=== PATIENT | female | born 1950 | race Caucasian/White ===

== ENCOUNTER 2018-05-05 08:42 | Outpatient (CLI) | payer OTHER, SELFPAY ==
[2018-05-05 10:10] LABS: ALT 45 U/L (12-78); AST 25 U/L (15-37); Albumin 4.1 g/dL (3.4-5.0); Alkaline Phosphatase 67 U/L (46-116); Anion Gap 8.7 mmol/L (3-11); BUN 16 mg/dL (7-18); Bilirubin, Total 0.5 mg/dL (0.2-1.0); CO2 31.3 mmol/L (21.0-32.0); CREATININE 0.77 mg/dL (0.55-1.02); Calcium 9.6 mg/dL (8.5-10.1); Chloride 102 mmol/L (98-107); Cholesterol 174 mg/dL (50-200); Glucose 93 mg/dL (70-100); HDL Cholesterol 59 mg/dL (40-60); LDL CHOLESTEROL 99 mg/dL (<100); Potassium 3.9 mmol/L (3.5-5.1); Sodium 142 mmol/L (136-145); Total Protein 7.4 g/dL (6.4-8.2); Triglyceride 63 mg/dL (30-150)
[2018-05-08 08:15] LABS: Vitamin D 25 Total 37.8 ng/ml (30-100)
== END 2018-05-05 09:02 ==
PROVIDERS: PCP Family Medicine; Visit Provider Family Medicine
DX: Z00.00 Encounter for general adult medical examination without abnormal findings (principal); I10 Essential (primary) hypertension; E55.9 Vitamin D deficiency, unspecified
CPT/HCPCS: 36415; 80053; 80061; 82306; 83721

== ENCOUNTER 2018-05-11 00:38 | Outpatient (CLI) | payer OTHER, SELFPAY ==
--- NOTE | 2018-05-11 08:24 | DI.MAMMO_ITS ---
SYMPTOM/DIAGNOSIS: SCREENING, Z12.31 MAMMOGRAMS: Mammograms were interpreted according to the usual protocol including computer analysis with CAD system, tomosynthesis and C view imaging. The breasts are heterogeneously dense. No dominant mass or clumped microcalcification is identified in either breast. The current examination is compared with the previous examinations including 04/2017 and there has been no gross interval change in appearance in comparison with the previous studies. CONCLUSION: No specific evidence of malignancy at this time. Routine screening examinations are suggested at yearly intervals in this age group according to the ACS/ACR guidelines. Category 1. Breast density, category C. MQSA ASSESSMENT OF FINDINGS: Negative. Category 1. Patient will receive a letter notifying them of these results. Bi-RADS category C. The breasts are heterogeneously dense, which may obscure small masses.
== END 2018-05-11 00:58 ==
PROVIDERS: PCP Family Medicine; Visit Provider Family Medicine
DX: Z12.31 Encounter for screening mammogram for malignant neoplasm of breast (principal)
CPT/HCPCS: 77063; 77067

== ENCOUNTER 2018-10-31 13:56 | Outpatient (REF) | payer OTHER, SELFPAY ==
[2018-11-02 13:38] LABS: Chlamydia Result Negative; GC Result Negative; Specimen Description VAGINAL
== END 2018-10-31 14:16 ==
LOC: LBN 13:56
PROVIDERS: PCP Family Medicine; Visit Provider Family Medicine
DX: N76.0 Acute vaginitis (principal); Z11.3 Encounter for screening for infections with a predominantly sexual mode of transmission
CPT/HCPCS: 87491; 87591; 87480; 87510; 87660

== ENCOUNTER 2018-11-08 10:15 | Outpatient (CLI) | payer OTHER, SELFPAY ==
[2018-11-09 10:00] LABS: Hepatitis C Ab w Rflx HCV PCR Negative (NEGAT)
[2018-11-09 10:51] LABS: HIV-1/2 Ag & Ab Screen Negative (NEGAT)
[2018-11-09 11:00] LABS: Syphilis Serology (RPR) Negative (Negative)
[2018-11-10 11:09] LABS: HSV Type 1 Ab, IgG Positive; HSV Type 2 Ab, IgG Negative
== END 2018-11-08 10:35 ==
PROVIDERS: PCP Family Medicine; Visit Provider Family Medicine
DX: Z11.3 Encounter for screening for infections with a predominantly sexual mode of transmission (principal); Z11.59 Encounter for screening for other viral diseases; Z11.4 Encounter for screening for human immunodeficiency virus [HIV]
CPT/HCPCS: 36415; 86803; 87389; 87529; 86592; 86695; 86696

== ENCOUNTER 2019-06-07 01:00 | Outpatient (CLI) | payer OTHER, SELFPAY ==
--- NOTE | 2019-06-07 12:30 | DI.MAMMO_ITS ---
EXAM: MAMMO SCREENING CLINICAL HISTORY: screening, Z12.39 TECHNIQUE: Mammograms were interpreted according to the usual protocol including computer analysis w ith CAD system, tomosynthesis and C-view imaging. COMPARISON: 2009 through 2018 FINDINGS: The breasts are composed of heterogeneously dense fibroglandular densities, Breast Density category C . No suspicious masses or suspicious microcalcifications are seen. No skin thickening or abnormal axillary lymph nodes are seen. There has been no significant change from prior exams. IMPRESSION: BI-RADS Category 1: Negative mammogram. Yearly screening mammography is recommended. Breast density category C, heterogeneously dense tissue which decreases the sensitivity of the mammog alexia. The mammogram demonstrates the patient's breast tissue is dense. Dense breast tissue is very common a nd is not abnormal but dense breast tissue can make it harder to find cancer on a mammogram. Also, de nse breast tissue may increase breast cancer risk. This information about the result of the mammogram report was provided to the patient to raise their awareness. Use this report when you speak with the patient about their risks for breast cancer, which includes their family history. At that time, you may recommend additional screening tests (Ultrasound or MRI) as they might be useful based on their r isk. A negative radiographic report should not delay biopsy if a dominant or clinically suspicious mass is present. Up to ten percent of cancers are not identified on mammography. A negative report may reinforce clinical impression. Adenosis and dense breasts may obscure an underlying neoplasm. False positive reports average 6 to 10%.
== END 2019-06-07 01:20 ==
PROVIDERS: PCP Family Medicine; Visit Provider Family Medicine
DX: Z12.31 Encounter for screening mammogram for malignant neoplasm of breast (principal)
CPT/HCPCS: 77063; 77067

== ENCOUNTER 2019-07-05 09:35 | Outpatient (CLI) | payer OTHER, SELFPAY ==
--- NOTE | 2019-07-05 09:00 | DI.US_ITS ---
EXAM: US BREAST RT COMPLETE CLINICAL HISTORY: right breast changes/ nl mammo, breast skin changes, R23.4, changes skin TECHNIQUE: Ultrasound right breast performed using standard protocol. COMPARISON: Prior mammograms available for comparison. The most recent mammogram is dated 06/07/2019 . FINDINGS: No solid or cystic masses, hypoechoic foci, areas of abnormal shadowing, or areas of skin thickening. IMPRESSION: No sonographically suspicious finding is seen in the right breast. DATA REPOSITORY:
== END 2019-07-05 09:55 ==
PROVIDERS: PCP Family Medicine; Visit Provider Family Medicine
DX: N64.59 Other signs and symptoms in breast (principal); R23.4 Changes in skin texture
CPT/HCPCS: 76642

== ENCOUNTER 2020-01-18 02:23 | Outpatient (CLI) | payer OTHER, MEDICARE, SELFPAY ==
[2020-01-18 09:42] LABS: HCT 41.4 % (36.0-46.0); HGB 13.9 g/dL (11.2-15.7); MCH 31.4 pg (27.0-33.0); MCHC 33.6 % (32.0-36.0); MCV 93.7 fL (80-95); MPV 10.2 fL (8.0-11.0); Platelet Count 248 10^3/uL (130-400); RBC 4.42 10^6/uL (3.93-5.22); RDW 12.5 % (11.7-14.6); RDW-SD 43.6 fL; WBC 4.68 10^3/uL (4.4-10.8)
[2020-01-18 10:25] LABS: ALT 70 U/L (14-59); AST 37 U/L (15-37); Albumin 3.9 g/dL (3.4-5.0); Alkaline Phosphatase 71 U/L (46-116); Anion Gap 4.7 mmol/L (3-11); BUN 11 mg/dL (7-18); Bilirubin, Total 0.4 mg/dL (0.2-1.0); C-Reactive Protein 0.67 mg/dL (0.0-0.3); CO2 29.3 mmol/L (21.0-32.0); CREATININE 0.73 mg/dL (0.55-1.02); Calcium 8.8 mg/dL (8.5-10.1); Chloride 106 mmol/L (98-107); Glucose 93 mg/dL (74-106); Potassium 3.8 mmol/L (3.5-5.1); Sodium 140 mmol/L (136-145); Total Protein 6.7 g/dL (6.4-8.2)
[2020-01-18 10:48] LABS: ESR 14 mm/hr (0-30)
[2020-01-18 20:45] LABS: Rheumatoid Factor <8.6 IU/mL (<12.0)
[2020-01-21 05:09] LABS: Vitamin D 25 Total 25.8 ng/ml (30-100)
[2020-01-21 09:14] LABS: HBs Antibody, Quant 128.1 mIU/mL (See Note); Hepatitis B Surface Ab Positive (See Note)
[2020-01-21 09:45] LABS: Cyclic Citrullinated Peptide <2.5 U/mL (<5.0)
[2020-01-21 10:09] LABS: Measles IgG Antibody Positive (See Note); Mumps Antibody IgG Positive (See Note); Rubella IgG Ab (UVM) Positive (See Note); Varicella IgG Antibody Positive (See Note)
[2020-01-21 12:16] LABS: HLA-B27 Result Negative
[2020-01-21 14:05] LABS: ANA Interpretation Negative (Negative)
[2020-02-07 09:43] LABS: TB Interpretation Negative (Negative)
== END 2020-01-18 02:43 ==
PROVIDERS: Nurse Practitioner Family; PCP Family Medicine; Visit Provider Family Medicine
DX: M54.2 Cervicalgia (principal); M79.641 Pain in right hand; M25.531 Pain in right wrist; M25.562 Pain in left knee; Z11.59 Encounter for screening for other viral diseases; Z01.84 Encounter for antibody response examination
CPT/HCPCS: 36415; 80053; 82306; 85027; 85652; 86200; 86706; 86787; 86812; 86038; 86140; 86431; 86480; 86735; 86762; 86765

== ENCOUNTER 2020-01-18 03:31 | Outpatient (CLI) | payer OTHER, MEDICARE, SELFPAY ==
--- NOTE | 2020-01-18 07:45 | DI.RAD_ITS ---
EXAM: XR HAND RT COMPLETE CLINICAL HISTORY: wrist and hand pain,m25.50,m25.539,arthralgia,m79.643 TECHNIQUE: 2D digital imaging was performed. COMPARISON: No exams were available for comparison FINDINGS: Bones are normally mineralized. There is mild spurring at the interphalangeal joint of the thumb. N o bony erosions are seen. There are mild degenerative changes at the 1st carpal metacarpal joint. IMPRESSION: Mild degenerative changes..
--- NOTE | 2020-01-18 07:45 | DI.RAD_ITS ---
EXAM: XR KNEE LT 3V AP,LAT,FLOYD CLINICAL HISTORY: left knee pain,m25.569. TECHNIQUE: 2D digital imaging was performed. COMPARISON: CR LEFT KNEE 4+ VIEWS from 11/12/2014 FINDINGS: BONES: No acute fracture is present. No bony destructive lesion is seen. JOINTS: There is moderate narrowing of the medial femoral tibial joint. There is mild spurring at th e medial femoral condyle and medial tibial plateau. There is minimal spurring at the patellofemoral joint. No joint effusion is seen. SOFT TISSUE: Normal. 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 Findings have progressed when comp ared with 2015. DATA REPOSITORY: RADIATION DOSE DELIVERED:
--- NOTE | 2020-01-18 07:45 | DI.RAD_ITS ---
EXAM: XR WRIST RT COMPLETE CLINICAL HISTORY: wrist and hand pain,arthralgia,m25.50,m25.539,m79.643. TECHNIQUE: 2D digital imaging was performed. COMPARISON: No exams were available for comparison FINDINGS: BONES: No acute fracture is present. No bony destructive lesion is seen. A cyst is noted in the navic ular. There are tiny cysts at the ulnar styloid. There is mild spurring at the distal radius. Ther e are mild degenerative changes of the 1st carpal metacarpal joint. The bones are normally mineraliz ed. JOINTS: The carpal bones are normally aligned. SOFT TISSUE: Normal. IMPRESSION: Mild degenerative changes, greatest at the 1st carpal metacarpal joint. DATA REPOSITORY: RADIATION DOSE DELIVERED:
== END 2020-01-18 03:51 ==
PROVIDERS: PCP Family Medicine; Visit Provider Family Medicine
DX: M18.11 Unilateral primary osteoarthritis of first carpometacarpal joint, right hand (principal); M77.8 Other enthesopathies, not elsewhere classified; M85.631 Other cyst of bone, right forearm; M17.12 Unilateral primary osteoarthritis, left knee
CPT/HCPCS: 73562; 73110; 73130

== ENCOUNTER 2020-03-14 02:34 | Outpatient (CLI) | payer OTHER, SELFPAY ==
[2020-03-14 16:32] LABS: ALT 60 U/L (14-59); AST 23 U/L (15-37); Albumin 4.1 g/dL (3.4-5.0); Alkaline Phosphatase 88 U/L (46-116); Anion Gap 7.9 mmol/L (3-11); BUN 19 mg/dL (7-18); Bilirubin, Total 0.3 mg/dL (0.2-1.0); CO2 28.1 mmol/L (21.0-32.0); CREATININE 0.83 mg/dL (0.55-1.02); Calcium 9.4 mg/dL (8.5-10.1); Chloride 103 mmol/L (98-107); Glucose 108 mg/dL (74-106); Potassium 3.8 mmol/L (3.5-5.1); Sodium 139 mmol/L (136-145); Total Protein 7.1 g/dL (6.4-8.2)
[2020-03-17 10:28] LABS: HBs Antibody, Quant 128.6 mIU/mL (See Note); Hepatitis B Surface Ab Positive (See Note)
[2020-03-17 11:09] LABS: Measles IgG Antibody Positive (See Note); Varicella IgG Antibody Positive (See Note)
[2020-03-17 11:11] LABS: Mumps Antibody IgG Positive (See Note); Rubella IgG Ab (UVM) Positive (See Note)
[2020-03-19 14:31] LABS: TB Interpretation Negative (Negative); TB1 Ag minus Nil 0.01 IU/ml; TB2 Ag minus Nil 0.01 IU/mL
== END 2020-03-14 02:54 ==
PROVIDERS: Nurse Practitioner Family; PCP Family Medicine; Visit Provider Family Medicine
DX: R79.89 Other specified abnormal findings of blood chemistry (principal); Z02.1 Encounter for pre-employment examination; Z11.59 Encounter for screening for other viral diseases
CPT/HCPCS: 36415; 80053; 86706; 86787; 86480; 86735; 86762; 86765

== ENCOUNTER 2020-09-03 02:48 | Outpatient (CLI) | payer MEDICARE, SELFPAY ==
[2020-09-03 12:37] LABS: ALT 59 U/L (14-59); AST 29 U/L (15-37); Alkaline Phosphatase 72 U/L (46-116); Anion Gap 7.4 mmol/L (3-11); BUN 16 mg/dL (7-18); Bilirubin, Total 0.4 mg/dL (0.2-1.0); CO2 30.6 mmol/L (21.0-32.0); CREATININE 0.8 mg/dL (0.55-1.02); Calcium 9.4 mg/dL (8.5-10.1); Chloride 105 mmol/L (98-107); Glucose 114 mg/dL (74-106); Sodium 143 mmol/L (136-145); Total Protein 6.8 g/dL (6.4-8.2)
[2020-09-04 05:16] LABS: Vitamin D 25 Total 68.8 ng/mL (30-100)
== END 2020-09-03 02:49 | disposition home or self-care (01) ==
LOC: LBO 02:48
PROVIDERS: PCP Family Medicine; Visit Provider Family Medicine
DX: R79.89 Other specified abnormal findings of blood chemistry (principal); E55.9 Vitamin D deficiency, unspecified
CPT/HCPCS: 36415; 80053; 82306

== ENCOUNTER 2020-09-22 02:02 | Outpatient (CLI) | payer MEDICARE, SELFPAY ==
--- NOTE | 2020-09-22 12:50 | DI.MAMMO_ITS ---
Exam(s) MAMMO SCREENING EXAM: MAMMO SCREENING CLINICAL HISTORY: screening Z12.39. TECHNIQUE: Bilateral full field digital CC and MLO mammographic images were obtained with 3D tomosyn thesis and utilizing computer aided detection (CAD). COMPARISON: Prior mammograms dating back to 2010, the most recent being May 2019. FINDINGS: There are no new significant radiograph findings in left breast. In the lateral aspect of the right breast on 3D MLO imaging there is a new small noncalcified nodule measuring 5 x 3 millimeters, this located approximately 6.5 cm in from the nipple. There are no malignant-appearing microcalcification groups in this region or elsewhere in either moni st. There is no significant architectural distortion nor skin thickening-retraction. IMPRESSION: No radiographic evidence of malignancy in left breast. 5.3 millimeter noncalcified right breast nodule. Spot compression view and ultrasound recommended. BI-RADS Category 0 - Assessment Incomplete: Need additional imaging evaluation Breast Density - Category C - Heterogeneously dense Breast density Category C or D implies that the patient has dense breast tissue. Dense breast tissue can make it harder to find cancer on a mammogram. Dense breast tissue is also associated with an incr eased risk of breast cancer. This information about the result of the mammogram report was provided to the patient to raise their awareness. Use this report when you speak with the patient about their risks for breast cancer, which includes their family history. At that time, you may recommend additional screening tests (Ultrasoun d or MRI) as these tests may add significant information. A negative radiographic report should not delay biopsy if a dominant or clinically suspicious mass is present. Up to ten percent of cancers are not identified on mammography. A negative report may reinforce clinical impression. Adenosis and dense breasts may obscure an underlying neoplasm. False positive reports average 6 to 10%. Patient will receive a letter notifying them of these results.
== END 2020-09-22 02:22 ==
PROVIDERS: PCP Family Medicine; Visit Provider Family Medicine
DX: Z12.31 Encounter for screening mammogram for malignant neoplasm of breast (principal); N63.10 Unspecified lump in the right breast, unspecified quadrant
CPT/HCPCS: 77063; 77067

== ENCOUNTER → 2020-10-03 03:04 | Outpatient (CLI) | payer MEDICARE, SELFPAY ==
--- NOTE | 2020-10-03 | DI.US_ITS ---
Exam(s) US BREAST RT LIMITED EXAM: US BREAST RT LIMITED a CLINICAL HISTORY: F/U MAMMO, NEW RT BREAST NODULE TECHNIQUE: Ultrasound right breast performed using standard protocol and call back views. Please see report of call back additional views of same date. FINDINGS: No solid or cystic masses, hypoechoic foci, areas of abnormal shadowing, or areas of skin thickening. IMPRESSION: No sonographically suspicious finding. DATA REPOSITORY:
--- NOTE | 2020-10-03 13:33 | DI.MAMMO_ITS ---
Exam(s) MG MAMMO SCREEN CALL BACK UNI EXAM: MG MAMMO SCREEN CALL BACK UNI MG MAMMO SCREEN CALL BACK UNI 8 CLINICAL HISTORY: F/U MAMMO,NEW RT BREAST NODULE TECHNIQUE: Spot compression views and tomographic imaging were performed. and right breast ultrasound. COMPARISON: 22 September 2020 mammogram and bowel as exams back to 2010 FINDINGS: Spot compression right MLO view with tomography:No suspicious masses or suspicious microcalcification s are seen. No persistent abnormality is seen on the additional views performed. The findings are consistent wit h overlying fibroglandular tissue. Dense tissue is again noted in the upper outer quadrant of the ri ght breast, unchanged. There has been no significant change from prior exams. Right breast ultrasound: No cyst or mass is identified. IMPRESSION: BI-RADS Category 1, Negative Yearly screening mammography is recommended. Breast Density - Category C - Heterogeneously dense.
== END ==
PROVIDERS: PCP Family Medicine; Visit Provider Family Medicine
DX: Z12.31 Encounter for screening mammogram for malignant neoplasm of breast (principal); R92.8 Other abnormal and inconclusive findings on diagnostic imaging of breast; N63.10 Unspecified lump in the right breast, unspecified quadrant
CPT/HCPCS: 76642; 77063; 77067

== ENCOUNTER → 2021-02-13 09:49 | Outpatient (BNVA) | payer MEDICARE, SELFPAY | PROVIDERS: PCP Family Medicine; Referring Provider Family Medicine; Visit Provider Physical Therapy Assistant | DX: Z12.11 Encounter for screening for malignant neoplasm of colon (principal); I10 Essential (primary) hypertension ==

== ENCOUNTER 2021-03-04 01:57 | Outpatient (CLI) | payer MEDICARE, SELFPAY ==
[2021-03-04 11:41] LABS: Source Nasal/Nares
[2021-03-04 13:50] LABS: COVID-19 PCR Negative (Negative)
== END 2021-03-04 01:58 | disposition home or self-care (01) ==
LOC: LBO 01:57
PROVIDERS: Surgery; PCP Family Medicine; Visit Provider Surgery
DX: Z20.822 Contact with and (suspected) exposure to COVID-19 (principal)
CPT/HCPCS: 87635

== ENCOUNTER 2021-03-06 08:00 | Day surgery (SDC) | payer MEDICARE, SELFPAY ==
--- NOTE | 2021-03-05 21:18 | W.COLOREPORT ---
Colonoscopy Report Date of procedure: 03/06/21 Pre-op diagnosis general: CRC screen Post-op diagnosis procedure note: other (Erythema from 60 to 70 cm of undetermined significance. Biopsies pending.) Surgeon: Safia Sumner Anesthesia Type: General:No Airway Estimated blood loss (mL): 1 Pathology: other Complications: None Disposition: same day Prep: Miralax/Dulcolax Retraction Time: 8 Procedure Description: After informed consent was obtained the patient was taken to the procedure room and placed in a left decubitous position. Monitors were applied and a time out was done. The patients name, date of , procedure, allergies to medications and metal in their body was reviewed. The patient was then sedated. Once sedated and comfortable a rectal exam was done. External exam was normal. Internal exam revealed a normal sphincter tone and no palpable masses. The scope was then introduced and retrofelexed. no internal hemorrhoids were identified. The scope was then advanced to the cecum w/out difficulty. The TI and appendiceal orifice were identified. The prep was good. The scope was then slowly retracted over 8 minutes back into the rectum. There are no polyps, diverticula, or AVMs noted. From 60 to 70 cm on the antimesenteric, wall she has an area of patchy, mild erythema of undetermined significance. Biopsy was taken. The scope was removed and the patient was woken up and taken back to Same day surgery in stable condition. The patient tolerated the procedure well and there were no immediate complications. Follow up: The patient should follow up in 10 years- path pd, unless they develop changes in bowel habits or other new gastrointestinal complaints.
--- NOTE | 2021-03-05 21:19 | PDOC.DSDIS_ITS ---
Discharge Plan Disposition Patient Disposition: HOME Condition: Good Discharge Details Reason For Visit: colon scope Attending Provider: Safia Sumner Primary Care Provider: Maki Dowd Home Meds and New Rx's Prescriptions: Continued cyclobenzaprine 10 mg tablet 10 mg PO BID PRN (Reason: muscle spasm) Qty: 30 RF: 1 estradiol [Vagifem] 10 mcg tablet 10 mcg VG twice weekly Qty: 24 RF: 12 estradiol [Estrace] 0.01 % (0.1 mg/gram) cream 2 g VG DAILY Qty: 42.5 RF: 2 hydrochlorothiazide 25 mg tablet 25 mg PO DAILY Qty: 90 RF: 4 prochlorperazine maleate 10 mg tablet 10 mg PO Q8H PRN Qty: 90 RF: 0 rizatriptan [Maxalt] 10 mg tablet 10 mg PO Q2H PRN (Reason: migraine headache) Qty: 7 RF: 3 sulfamethoxazole-trimethoprim 800-160 mg tablet 1 tab PO as directed Qty: 60 RF: 0 multivitamin [Daily Multi-Vitamin] Tablet 1 tab PO DAILY RF: 0 omeprazole 20 mg capsule,delayed release(DR/EC) 20 mg PO DAILY Qty: 60 RF: 0 fluconazole 150 mg tablet 150 mg PO Q3D Qty: 2 RF: 0 quetiapine 100 mg tablet 100 mg PO DAILY Qty: 90 RF: 12 celecoxib 200 mg capsule 200 mg PO DAILY Qty: 30 RF: 3 zolpidem 10 mg tablet 10 mg PO QHS PRN (Reason: insomnia) Qty: 30 RF: 0 ergocalciferol (vitamin D2) 1,250 mcg (50,000 unit) capsule 50,000 unit PO QWEEK Qty: 13 RF: 4 lorazepam [Ativan] 1 mg tablet 1 mg PO BID PRN (Reason: anxiety) Qty: 60 RF: 0 Discontinued polyethylene glycol 3350 17 gram/dose powder 238 g PO ONCE Qty: 238 RF: 0 bisacodyl [Dulcolax (bisacodyl)] 5 mg tablet,delayed release (DR/EC) 5 mg PO ONCE Qty: 4 RF: 0 Discharge Instructions Additional Instructions: DSU Colonoscopy Post- Op Instructions Instructions for Everyone who is given Anesthesia: For your safety, please do the following for the next twenty-four (24) hours: *Do Not operate a motor vehicle (car, truck, motorcycle, etc.) *Do Not drink alcoholic beverages or use any recreational drugs for the first 24 hours or while taking pain medications. The medications in your body may have a reaction that can be dangerous. *Do Not make any important decisions or sign any important papers. Findings: mild irritation from 60-70cm of unknown clinical significance. bx taken Otherwise the colon is completely normal -If you are still having constipation on a regular basis, I recommend you take a fiber product daily such as Metamucil. Follow up: My office will send a letter in 2 to 3 weeks time with the biopsy result. Most likely is just some irritation from the prep. Plan on repeating colonoscopy in 10 years time 1. No lifting over 20 pounds or strenuous activity for the first 24 hours after your procedure. After 24 hours there are no restrictions on your activity but you may feel fatigued for a few days. 2. After you arrive home you may have a light meal and return to your normal diet as you can tolerate it without feeling sick to your stomach. 3. You may have a bloated, gaseous feeling in your belly (abdomen) after a colonoscopy. Passing gas and belching will help. Walking or lying down on your left side with your knees flexed may relieve the discomfort. Call the office at [phone] (Office) or [phone] (Hospital) right away if you notice any of the following: a.Vomiting of blood or ?coffee ground stools?. b.Rectal bleeding 1Tbsp, blood clots or continuous bleeding. c.Severe belly (abdominal) pain. d.A hard distended belly (abdomen) and an inability to pass gas. 4. Please don?t expect to have a normal BM (bowel movement) for 2-3 days after your procedure. 5. If there are questions regarding the findings of your procedure, please contact your doctor 6. If you are unable to contact your doctor with a problem, contact the hospital at [phone]. 7. Continue all your regular medications unless directed otherwise. I understand the above instructions and have no questions. Signature of Patient or Adult Escort Name of Responsible Adult Escort Signature of Nurse Date/Time Activity:: see above Diet:: see above Discharge Orders Discharge Orders: Discharge Order (Routine); Ordered 03/05/21 Ordered By: Safia Sumner DS: Diagnosis Discharge Diagnosis (1) Colon abnormality: Status: Acute
[2021-03-06 08:18] VITALS: BP 133/103; PULSE 93; RESP 16; TEMP 36.6; O2SAT 97
--- NOTE | 2021-03-06 08:33 | ANES.PREOP_ITS ---
General Info Date of Service Date Performed: 03/06/21 Height: 5 ft 7 in Weight: 94.585 kg Body Mass Index (BMI): 32.6 Surgical Procedure: Operation Date: 03/06/21 09:05 Proposed Procedures Side Surgeon fanny Sumner, DO Meds Allergies and Home Medications Allergies Allergy/AdvReac Type Severity Reaction Status Date / Time nut - unspecified Allergy Severe Tremors Verified 03/04/21 14:50 Penicillins Allergy Intermediate Skin Rash Verified 03/04/21 14:50 wheat Allergy Rash Verified 03/04/21 14:50 topiramate AdvReac Severe CONTRAINDIC Verified 03/04/21 14:50 ATED tramadol AdvReac Intermediate Headache Verified 03/04/21 14:50 codeine AdvReac Mild Headache Verified 03/04/21 14:50 meperidine HCl [From Demerol] AdvReac Mild Headache Verified 03/04/21 14:50 metoclopramide HCl AdvReac Mild Contraindic Verified 03/04/21 14:50 [From Reglan] ated Home Medication Medication Instructions Recorded cyclobenzaprine 10 mg tablet 10 mg PO BID PRN #30 tab-cap 03/18/20 estradiol 2 g VG DAILY #42.5 g 03/18/20 estradiol 10 mcg vaginal tablet 10 mcg VG twice weekly #24 tab-cap 03/18/20 hydrochlorothiazide 25 mg tablet 25 mg PO DAILY #90 tab-cap 03/18/20 prochlorperazine maleate 10 mg 10 mg PO Q8H PRN #90 tab 03/18/20 tablet rizatriptan 10 mg tablet 10 mg PO Q2H PRN #7 tab 03/18/20 sulfamethoxazole 800 1 tab PO as directed #60 tab-cap 03/18/20 mg-trimethoprim 160 mg tablet fluconazole 150 mg tablet 150 mg PO Q3D #2 tab 08/15/20 quetiapine 100 mg tablet 100 mg PO DAILY #90 tab 09/25/20 celecoxib 200 mg capsule 200 mg PO DAILY #30 cap 11/24/20 zolpidem 10 mg tablet 10 mg PO QHS PRN #30 tab 12/09/20 ergocalciferol (vitamin D2) 1,250 50,000 unit PO QWEEK #13 cap 01/16/21 mcg (50,000 unit) capsule lorazepam 1 mg tablet 1 mg PO BID PRN #60 tab 01/21/21 multivitamin 1 tab PO DAILY 02/13/21 omeprazole 20 mg capsule,delayed 20 mg PO DAILY #60 cap 02/16/21 release Current Visit Medications: Current Medications Generic Name Dose Route Start Last Admin Trade Name Gary PRN Reason Stop Dose Admin Hyoscyamine Sulfate 0.125 mg 03/05/21 21:15 Hyoscyamine 0.125 Mg Sl/Oral/Chew SL DIRECTED PRN Ringer's Solution 1,000 mls @ 80 mls/hr 03/06/21 06:00 IV 04/04/21 23:59 INFUSION [facility] IV Miscellaneous Supplies 1 each 03/06/21 06:00 Iv Access IV 04/04/21 23:59 DIRECTED [facility] Ondansetron HCl 4 mg 03/05/21 21:15 Ondansetron 4 Mg/2 Ml Vial IVP Q4H PRN PRN Nausea / Vomiting Sodium Chloride 0 ml 03/06/21 06:00 Normal Saline Flush 10 Ml Syr IV 04/04/21 23:59 PRN PRN Sodium Chloride 0 ml 03/06/21 06:00 Normal Saline 10 Ml Vial IJ 04/04/21 23:59 DIRECTED PRN Sterile Water 0 ml 03/06/21 06:00 Water,Injection,Sterile 10 Ml Vial IJ 04/04/21 23:59 DIRECTED PRN PFSH Active Problems Active Problems: Problem Status Onset Code Vitamin D deficiency E55.9 Urethritis 07/29/14 N34.2 TMJ (temporomandibular joint disorder) 07/29/16 M26.609 Sacroiliac dysfunction 12/04/15 M53.3 Primary fibromyalgia syndrome 04/04/12 M79.7 Migraine without aura 07/31/14 G43.009 Lichen sclerosus et atrophicus 04/05/11 L90.0 Insomnia 11/11/14 G47.00 Hemorrhoids K64.9 Essential hypertension 12/26/12 I10 Dysphagia R13.10 Degeneration of cervical intervertebral disc 06/20/07 M50.30 Constant vertigo 09/14/12 R42 Bone spur M77.9 Asthma J45.909 Anxiety 02/04/14 F41.9 Annual physical exam 03/31/15 Z00.00 Abnormal auditory perception 12/05/14 H93.299 SCC (squamous cell carcinoma) Herpes simplex antibody positive R89.4 Cervical pain (neck) M54.2 Arthralgia M25.50 Elevated LFTs R79.89 Primary osteoarthritis of left knee M17.12 Tendonitis of wrist, right M77.8 Colon cancer screening Z12.11 Medical History Medical History Acute gastritis (11/28/08) Acute meniscal tear, medial (09/01/12) 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 states arthroscopy not arthroplasty LEFT; WITH PARTIAL MEDIAL MENISCECTOMY Bladder Surgery (~05/2009) SLING CYSTECTOMY RIGHT HAND/CHEEK EGD - MAC Hemorrhoidectomy (~09/2010) History of bladder repair surgery History of esophagogastroduodenoscopy KNEE REPAIR right knee bone spur POLYPECTOMY Status post appendectomy Status post hemorrhoidectomy Status post knee surgery Status post vaginal hysterectomy UTERINE BX (09/01/07) Proliferative endometrium Vaginal hysterectomy (~05/2009) [facility] – [place] Tobacco Smoking/Tobacco Use Status: Never Passive smoking exposure: Yes Alcohol Alcohol Intake: never Substance Use Substance use: Never Substance use type: does not use Vital Signs and Lab Results Vital Signs Most Recent Vital Signs in EMR: Most Recent Vital Signs Temp Pulse Resp BP Pulse Ox 36.6 C 93 H 16 133/103 H 97 03/06/21 08:18 03/06/21 08:18 03/06/21 08:18 03/06/21 08:18 03/06/21 08:18 Lab Results Blood Type / Crossmatch: No Data to Display Complete Blood Count: No Data to Display Complete Metabolic Panel: No Data to Display Liver Function Panel: No Data to Display Coagulation Panel: No Data to Display Cardiac Panel: No Data to Display Arterial Blood Gas: No Data to Display Venous Blood Gas: No Data to Display Pancreas Panel: No Data to Display Thyroid Panel: No Data to Display Infectious Disease: Coronavirus (COVID-19)(PCR) Negative (Negative) 03/04/21 09:07 03/04/21 Coronavirus 2019 Source Nasal/Nares 03/04/21 09:07 03/04/21 Blood Cultures: No Data to Display Toxicology Panel: No Data to Display Anesthesia Assessment and Plan Anesthesia History Personal History: No History of Anesthesia Complications Family History: No Family History of Anesthesia Complications Exercise Tolerance Exercise Tolerance: Metabolic Equivalents>4 Cardiac & Pulmonary Exam Cardiac Exam: Normal S1/S2 Heart Sounds Pulmonary Exam: Clear Bilateral Breath Sounds Implantable Cardiac Device Does patient have a Pacemaker or an ICD?: No Airway Exam Known Difficult Airway: No Mallampati Class: 3 Mouth Opening: Narrow (< 3cm) Thyromental Distance: Greater than 3 cm Neck Range of Motion: Full ROM Neck Circumference: Thick Teeth Condition: Normal Dentition ASA Classification ASA Score: ASA 2 Emergency Case?: No NPO Status NPO Status: NPO Clears >2 hours, Solids >8 hours Anesthesia Plan Resuscitation Status: Full Code Anesthesia Technique: General Anesthesia Airway Planned: Natural Airway Monitors Used: Standard Monitors Preoperative Comments:: 70 yo female for screening colo. Sig PMHx: TMJ, HTN (HCTZ), dysphagia, c spine radiculopathy, asthma, anxiety (loraz), GERD (omep) never smoker/EtOH.
[2021-03-06] MEDS: Lactated Ringers 1,000 ML 80 ML IV (08:53)
[2021-03-06 08:54] VITALS: BMI 32.6
--- NOTE | 2021-03-06 09:15 | BOWEL_PTH ---
PATIENT: Paulette Ho LOC: [facility] U#:[id number] AGE/SX: 70/F ROOM: RE03/06/[address]: Safia Sumner : 1950 BED: DIS: 03/06/2021 SPEC #: [id number] RECD: 03/06/21 12:46 STATUS: MELINDA REEva #: [id number] NEGRITA: 03/06/21 09:[address]: Safai Sumner DEPT: Surgical Specimen RECD BY: Cristel Cordero ENTERED: 03/06/21 12:47 SP TYPE: Bowel OTHR DR: Maki Dowd MD, DC Tissues: 1 - BIOPSY BOWEL Procedures: GROSS AND MICRO LEVEL 4 Comments: [id number]
[2021-03-06 09:39] VITALS: BP 124/89; PULSE 86; RESP 16; TEMP 36.1; O2SAT 96
[2021-03-06 10:09] VITALS: BP 135/82; PULSE 67; RESP 16; TEMP 36.1; O2SAT 95
--- NOTE | 2021-03-06 11:57 | W.ANESPOSTOP ---
Postoperative Evaluation Date, Time and Location Date Performed: 03/06/21 Time Performed: 10:15 Patient Location: Day Surgery Unit Vital Signs Most Recent Imported Vital Signs: Most Recent Vital Signs Temp Pulse Resp BP Pulse Ox 36.1 C L 67 16 135/82 95 03/06/21 10:09 03/06/21 10:09 03/06/21 10:09 03/06/21 10:09 03/06/21 10:09 Pain Score Most Recent Pain Score: Most Recent Pain Score Pain Level 0 03/06/21 10:09 Assessment Mental Status: Awake (Alert & Oriented to Patient Baseline) Airway and Respiratory Function: Patent airway with normal (patient baseline) respiratory exam Cardiovascular Function: Hemodynamically Stable Hydration Status: Adequately Hydrated Nausea & Vomiting: No Nausea or Vomiting Pain: Pt. Denies Any Pain Peripheral Nerve Block: Patient did not receive a nerve block
== END 2021-03-06 10:38 | disposition home or self-care (01) ==
PROVIDERS: PCP Family Medicine; Visit Provider Surgery
PROC: 0DJD8ZZ Inspection of Lower Intestinal Tract, Via Natural or Artificial Opening Endoscopic (ICD-10-PCS; CPT 45378; principal; 2021-03-06 09:00)
DX: Z12.11 Encounter for screening for malignant neoplasm of colon (principal); K63.89 Other specified diseases of intestine; I10 Essential (primary) hypertension; J45.909 Unspecified asthma, uncomplicated
CPT/HCPCS: 45380; 88305

== ENCOUNTER 2021-03-18 01:51 | Outpatient (CLI) | payer MEDICARE, SELFPAY ==
--- NOTE | 2021-03-18 08:00 | DI.RAD_ITS ---
Exam(s) XR HEEL LT OS CALCIS EXAM: XR HEEL LT OS CALCIS CLINICAL HISTORY: left heel pain,m79.672. TECHNIQUE: 2D digital imaging was performed. Two views were obtained. COMPARISON: No exams were available for comparison FINDINGS: BONES: No acute fracture is present. No bony destructive lesion is seen. There is a small spur at th e plantar surface of the calcaneus. There is a tiny enthesophyte at the Achilles insertion site. JOINTS: No dislocation present. SOFT TISSUE: Normal. IMPRESSION: Small plantar calcaneal spur. DATA REPOSITORY: RADIATION DOSE DELIVERED:
== END 2021-03-18 02:11 ==
PROVIDERS: PCP Family Medicine; Visit Provider Family Medicine
DX: M79.672 Pain in left foot (principal); M77.32 Calcaneal spur, left foot
CPT/HCPCS: 73650

== ENCOUNTER 2021-09-04 00:14 | Outpatient (CLI) | payer MEDICARE, SELFPAY ==
--- NOTE | 2021-09-04 06:45 | DI.RAD_ITS ---
Exam(s) XR HIP RT COMPLETE AP PELVIS EXAM: XR HIP RT COMPLETE AP PELVIS CLINICAL HISTORY: r hip pain,m25.551. TECHNIQUE: 2D digital imaging was performed of the right hip. Two images were obtained. AP pelvis a nd lateral right hip views were obtained. COMPARISON: No exams were available for comparison FINDINGS: BONES: No acute fracture is present. No bony destructive lesion is seen. JOINTS: No dislocation present. Degenerative changes are seen in the hips bilaterally with subchondra l sclerosis and mild acetabular hypertrophy. SOFT TISSUE: Normal. IMPRESSION: Mild degenerative changes of the hips bilaterally. DATA REPOSITORY: RADIATION DOSE DELIVERED:
--- NOTE | 2021-09-04 06:45 | DI.RAD_ITS ---
Exam(s) XR KNEE LT 3V AP,LAT,FLOYD EXAM: XR KNEE LT 3V AP,LAT,FLOYD CLINICAL HISTORY: left knee pain,m25.562. TECHNIQUE: 2D digital imaging was performed of the left knee. Three images were obtained. AP, late ral and PA tunnel views were obtained. COMPARISON: CR XR KNEE LT 3V AP,LAT,FLOYD from 01/18/2020 FINDINGS: BONES: No acute fracture is present. No bony destructive lesion is seen. JOINTS: The knee is normally aligned. No joint effusion is seen. There is narrowing of the medial fem oral tibial joint space. Mild periarticular spurring is seen media femoral tibial and the patellofem oral joints. SOFT TISSUE: Normal. IMPRESSION: Stable degenerative changes of the left knee. DATA REPOSITORY: RADIATION DOSE DELIVERED:
--- NOTE | 2021-09-04 06:45 | DI.DEXA_ITS ---
Exam(s) XR DEXA BONE DENSITY W/WO NANETTE EXAM: XR DEXA BONE DENSITY W/WO NANETTE CLINICAL HISTORY: osteoporosis,m81.0 TECHNIQUE: COMPARISON: Comparison examination is 06/26/2007. FINDINGS: Lateral Spine Image: Unremarkable. No compression deformities identified. Left hip: Total T-Score: -0.5. This is unchanged compared to the prior examination. Total Z-Score: 0.9 T- and Z-scores: Within normal limits. Lumbar Spine: Total T-Score: 0.3. This compares to 1.1 on the prior examination. This is a decrease in the bone mi neral density. Total Z-Score: 2.3 T- and Z-scores: Within normal limits. IMPRESSION: No evidence of osteoporosis.
== END 2021-09-04 00:34 ==
PROVIDERS: PCP Family Medicine; Visit Provider Family Medicine
DX: M25.562 Pain in left knee (principal); M17.12 Unilateral primary osteoarthritis, left knee; M25.551 Pain in right hip; M16.0 Bilateral primary osteoarthritis of hip; M85.88 Other specified disorders of bone density and structure, other site
CPT/HCPCS: 73562; 77080; 73502

== ENCOUNTER 2021-09-04 01:36 | Outpatient (CLI) | payer MEDICARE, SELFPAY ==
[2021-09-04 11:17] LABS: HCT 40.2 % (36.0-46.0); HGB 13.6 g/dL (11.2-15.7); MCH 31.8 pg (27.0-33.0); MCHC 33.8 % (32.0-36.0); MCV 94 fL (80-95); MPV 10.3 fL (8.0-11.0); Platelet Count 255 10^3/uL (130-400); RBC 4.28 10^6/uL (3.93-5.22); RDW 13.2 % (11.7-14.6); RDW-SD 45.4 fL; WBC 5.35 10^3/uL (4.4-10.8)
[2021-09-04 11:18] LABS: ESR 5 mm/hr (0-30)
[2021-09-04 12:47] LABS: ALT 24 U/L (14-59); AST 10 U/L (15-37); Albumin 4.2 g/dL (3.4-5.0); Alkaline Phosphatase 89 U/L (46-116); Anion Gap 7.2 mmol/L (3-11); BUN 11 mg/dL (7-18); Bilirubin, Total 0.4 mg/dL (0.2-1.0); CO2 29.8 mmol/L (21.0-32.0); CREATININE 0.8 mg/dL (0.55-1.02); Calcium 9.1 mg/dL (8.5-10.1); Calculated LDL 91 mg/dL (<100); Chloride 105 mmol/L (98-107); Cholesterol 177 mg/dL (<200); Glucose 105 mg/dL (74-106); HDL Cholesterol 63 mg/dL (40-60); Potassium 4.5 mmol/L (3.5-5.1); Sodium 142 mmol/L (136-145); Total Protein 6.7 g/dL (6.4-8.2); Triglyceride 118 mg/dL (<150)
== END 2021-09-04 01:37 | disposition home or self-care (01) ==
LOC: LBO 01:36
PROVIDERS: PCP Family Medicine; Visit Provider Family Medicine
DX: E55.9 Vitamin D deficiency, unspecified (principal); I10 Essential (primary) hypertension; J45.909 Unspecified asthma, uncomplicated; M25.562 Pain in left knee; M25.50 Pain in unspecified joint
CPT/HCPCS: 36415; 80053; 80061; 85027; 85652

== ENCOUNTER → 2021-12-21 07:56 | Outpatient (BNVA) | payer MEDICARE, SELFPAY | PROVIDERS: PCP Family Medicine; Referring Provider Family Medicine; Visit Provider Student in an Organized Health Care Education/Training Program | DX: M17.12 Unilateral primary osteoarthritis, left knee (principal) | CPT/HCPCS: 99214 ==

== ENCOUNTER 2022-10-13 02:34 | Outpatient (CLI) | payer MEDICARE, SELFPAY ==
--- NOTE | 2022-10-13 08:15 | DI.MAMMO_ITS ---
Exam(s) MAMMO SCREENING EXAM: MAMMO SCREENING CLINICAL HISTORY: screening,Z12.39 TECHNIQUE: Mammograms were interpreted according to the usual protocol including computer analysis w [employer] CAD system, tomosynthesis and C-view imaging. COMPARISON: 2012 through 2020 FINDINGS: The breasts are composed of scattered fibroglandular densities, Breast Density category B. No suspicious masses or suspicious microcalcifications are seen. Benign calcifications again noted i n right breast. No skin thickening or abnormal axillary lymph nodes are seen. There has been no significant change from prior exams. IMPRESSION: BI-RADS Cat 2 - Benign Findings Yearly screening mammography is recommended. Breast Density - Category B, scattered fibroglandular densities. A negative radiographic report should not delay biopsy if a dominant or clinically suspicious mass is present. Up to ten percent of cancers are not identified on mammography. A negative report may reinforce clinical impression. Adenosis and dense breasts may obscure an underlying neoplasm. False positive reports average 6 to 10%. Patient will receive a letter notifying them of these results.
== END 2022-10-13 02:54 ==
LOC: DI 02:35
PROVIDERS: PCP Family Medicine; Visit Provider Family Medicine
DX: Z12.31 Encounter for screening mammogram for malignant neoplasm of breast (principal)
CPT/HCPCS: 77063; 77067

== ENCOUNTER 2022-10-13 04:22 | Outpatient (CLI) | payer MEDICARE, SELFPAY ==
[2022-10-13 11:57] LABS: ALT 40 U/L (14-59); AST 25 U/L (15-37); Albumin 4.2 g/dL (3.4-5.0); Alkaline Phosphatase 98 U/L (46-116); Anion Gap 8.6 mmol/L (3-11); BUN 17 mg/dL (7-18); Bilirubin, Total 0.3 mg/dL (0.2-1.0); CO2 31.4 mmol/L (21.0-32.0); CREATININE 0.8 mg/dL (0.55-1.02); Calcium 9.2 mg/dL (8.5-10.1); Chloride 104 mmol/L (98-107); Estimated GFR 79.71 (mL/min/1.73m2); Glucose 85 mg/dL (74-106); Potassium 3.8 mmol/L (3.5-5.1); Sodium 144 mmol/L (136-145); Total Protein 7.2 g/dL (6.4-8.2)
== END 2022-10-13 04:23 | disposition home or self-care (01) ==
LOC: LBO 04:22
PROVIDERS: PCP Family Medicine; Visit Provider Family Medicine
DX: I10 Essential (primary) hypertension (principal)
CPT/HCPCS: 36415; 80053

== ENCOUNTER 2022-12-09 17:00 | Emergency (ER) | payer MEDICARE, SELFPAY ==
[2022-12-09 17:06] VITALS: BP 189/118; PULSE 105; RESP 20; TEMP 36.6; O2SAT 97
--- NOTE | 2022-12-09 17:25 | ED.GENADUL_ITS ---
Discharge Plan Disposition Patient Disposition: Home Discharge Details Chief Complaint: Orthopedic Clinical Impression: Left buttock pain, Hip pain, left Primary Care Provider: Maki Dowd ED Provider: Scooby Haynes Home Meds and New Rx's Prescriptions: No Action PreserVision AREDS-2 250-90-40-1 mg capsule 1 tab PO DAILY glucosamine-chondroitin [Osteo Bi-Flex] 250-200 mg tablet 2 tab PO DAILY magnesium oxide 500 mg tablet 500 mg PO DAILY estradiol [Estrace] 0.01 % (0.1 mg/gram) cream 2 g VG DAILY Qty: 42.5 2RF Rx Instructions: applied 3 mm spot estrogen to perineal area daily for 2 weeks and then twice weekly. multivitamin [Daily Multi-Vitamin] Tablet 1 tab PO DAILY lorazepam [Ativan] 1 mg tablet 1 mg PO BID PRN (Reason: anxiety) Qty: 60 0RF prochlorperazine maleate 10 mg tablet 10 mg PO Q8H PRN Qty: 90 0RF Rx Instructions: 1 three times daily PRN for headache or nausea sulfamethoxazole-trimethoprim 800-160 mg tablet 1 tab PO as directed Qty: 30 0RF Rx Instructions: use after intercourse diazepam [Valium] 2 mg tablet 2 mg PO TID PRN (Reason: muscle spasm) Qty: 30 1RF Rx Instructions: muscle spasm / M62.838 cyclobenzaprine 10 mg tablet 10 mg PO BID PRN (Reason: muscle spasm) Qty: 30 1RF nystatin 100,000 unit/gram powder 1 applic topical BID Qty: 60 4RF ergocalciferol (vitamin D2) 1,250 mcg (50,000 unit) capsule 50,000 unit PO QWEEK Qty: 13 4RF estradiol [Vagifem] 10 mcg tablet 10 mcg VG twice weekly Qty: 24 12RF omeprazole 20 mg capsule,delayed release(DR/EC) 20 mg PO DAILY Qty: 90 3RF rizatriptan [Maxalt] 10 mg tablet 10 mg PO Q2H PRN (Reason: migraine headache) Qty: 7 3RF hydrochlorothiazide 25 mg tablet 25 mg PO DAILY Qty: 90 4RF quetiapine 100 mg tablet 100 mg PO DAILY Qty: 90 12RF naproxen [Naprosyn] 500 mg tablet 500 mg PO BID Qty: 180 1RF Rx Instructions: do not use with prednisone or celebrex fluconazole 150 mg tablet 150 mg PO Q3D Qty: 2 0RF Rx Instructions: may repeat second dose 72 hrs after first dose if symptoms persist zolpidem 10 mg tablet 10 mg PO QHS PRN (Reason: insomnia) Qty: 30 1RF Rx Instructions: use sparingly Discharge Instructions Instructions: Hip Pain (ED) Additional Instructions: At this time the x-rays do not show any evidence of fracture. As we discussed together there is a chance that there may be a small fracture that we cannot see, which would be brought up by CAT scan. At this time you have decided to hold off on CT imaging. Please continue to take Tylenol in addition to naproxen as needed for pain. Ice your buttock. Use your crutches to stay off of your left hip for the time being as your pain improves. As we discussed together if your pain persists and you are unable to bear weight on the left, then it is imperative that you have repeat imaging with a CT scan or MRI. If you notice any worsening of your symptoms, or any new symptoms such as vomiting, diarrhea, fever, chills, shortness of breath, chest pain, numbness, weakness, or fainting , please return immediately to the emergency department for reevaluation. Please follow up with your primary care provider as soon as possible for reassessment and reevaluation. As always, it was a pleasure partic ipating in your medical care today. Referrals: Maki Dowd [place], [place] [Primary Care Provider] - Medical Decision Making 72-year-old female with a past medical history of gastritis, anxiety, asthma, hypertension, fibromyalgia, who presents today for evaluation of left buttock and hip pain. Patient states that she was mowing her lawn and sitting on a towel, the towel got stuck and launched her off of the lawnmower. She then fell onto her left hip and buttock. She denies loss of consciousness. No pain in her chest abdomen head arms or legs. She does have notable pain in her left buttock and hip though. Pain is made worse with movement. She is not able to bear weight secondary to the pain. This occurred about 45 minutes prior to arrival. She denies any other complaints. She was slightly nauseous, but has not vomited. She denies any numbness or tingling. No other complaints at this time. No other modifying factors. Exam demonstrates evidence of tenderness over the greater trochanter of the left hip, as well as the coccyx. No tenderness over the midshaft femur, knee, or back. No evidence of trauma to the head neck or chest. We will get x-rays of the hip and coccyx and femur. We will give [place] and Zofran for pain and nausea. We will monitor closely and reassess. 7:44 PM X-ray results have returned negative for evidence of fracture. Patient still has mild pain. We did get her up to ambulate, and she still does have mild to moderate pain in the left buttock and hip. Pain is mainly in the buttock though around the coccyx. I did discuss these findings with the patient, as well as my concern for potential occult fracture. I discussed my recommendations for CT imaging for further differentiation. At this time through notable discussion, weighing the risks and benefits, and a shared decision making process the patient has refused imaging at this time. Patient is of an appropriate age to make decisions. The patient is of sound mind, appears clinically sober, and has capacity to make decisions by my clinical exam. Respecting the patient's wishes we will hold off on imaging. Patient states that she would like to go home, and baby the hip/buttock for the next few days, and states that if her symptoms persist she will return for the imaging. Patient understands this including the risks and benefits. Patient will be discharged home. She has crutches already. Recommend continued Tylenol. Discussed red flags for which to return. Suspect notable contusion versus less likely occult fracture. I have extensively reviewed the treatment plan and discharge instructions with the patient and their family. I have addressed all patient concerns at this time. The patient and family was made aware of what symptoms to monitor for that would warrant a return to the emergency department. Discussed the plan with the patient and family, they demonstrate verbal understanding and agreement with our assessment and plan at this time. The documentation in this chart was dictated using [employer] dictation software. Please excuse any dictation errors. FINDINGS: Bones/joints: Osseous alignment is normal. No acute fracture. No significant arthritic change. Soft tissues: Unremarkable. IMPRESSION: Negative pelvis Thank you for allowing us to participate in the care of your patient. Dictated and Authenticated by: Paulo Ennis MD 12/09/2022 7:19 PM Eastern Time ([place] & [place]) FINDINGS: Bones/joints: Osseous alignment is normal. No acute fracture. Mild degenerative changes noted in the left knee. Soft tissues: Unremarkable. IMPRESSION: No acute abnormality Thank you for allowing us to participate in the care of your patient. Dictated and Authenticated by: Paulo Ennis MD 12/09/2022 7:19 PM Eastern Time ([place] & [place]) FINDINGS: Bones/joints: Normal. No acute fracture. Soft tissues: Normal. IMPRESSION: No acute findings. Thank you for allowing us to participate in the care of your patient. Dictated and Authenticated by: Paulo Ennis MD 12/09/2022 7:19 PM Eastern Time ([place] & [place]) HPI General Date/Time Provider Initiated Documentation: 12/09/22 17:08 . HPI Narrative: 72-year-old female with a past medical history of gastritis, anxiety, asthma, hypertension, fibromyalgia, who presents today for evaluation of left buttock and hip pain. Patient states that she was mowing her lawn and sitting on a towel, the towel got stuck and launched her off of the lawnmower. She then fell onto her left hip and buttock. She denies loss of consciousness. No pain in her chest abdomen head arms or legs. She does have notable pain in her left buttock and hip though. Pain is made worse with movement. She is not able to bear weight secondary to the pain. This occurred about 45 minutes prior to arrival. She denies any other complaints. She was slightly nauseous, but has not vomited. She denies any numbness or tingling. No other complaints at this time. No other modifying factors. Related Data Home Medications Medication Instructions Recorded Confirmed estradiol 0.01% (0.1 mg/gram) 2 g vaginal DAILY #42.5 grams 03/18/20 12/09/22 vaginal cream (Estrace) ergocalciferol (vitamin D2) 1,250 50,000 unit PO QWEEK #13 caps 01/16/21 12/09/22 mcg (50,000 unit) capsule multivitamin (Daily Multi-Vitamin 1 tab PO DAILY 02/13/21 12/09/22 tablet) glucosamine-chondroitin 250 mg-200 2 tab PO DAILY 08/13/21 12/09/22 mg tablet (Osteo Bi-Flex) magnesium oxide 500 mg tablet 500 mg PO DAILY 08/13/21 12/09/22 vit C 250 mg-vit E 90 mg-zinc 40 1 tab PO DAILY 08/13/21 09/21/22 mg-copper 1 [id number] capsule (PreserVision AREDS-2) lorazepam 1 mg tablet (Ativan) 1 mg PO BID PRN anxiety #60 tabs 02/09/22 12/09/22 estradiol 10 mcg vaginal tablet 10 mcg vaginal twice weekly #24 03/30/22 12/09/22 (Vagifem) tab-caps hydrochlorothiazide 25 mg tablet 25 mg PO DAILY #90 tab-caps 04/20/22 12/09/22 omeprazole 20 mg capsule,delayed 20 mg PO DAILY GERD/Dysphagia #90 04/20/22 12/09/22 release caps rizatriptan 10 mg tablet (Maxalt) 10 mg PO Q2H PRN migraine headache 04/20/22 12/09/22 #7 tabs quetiapine 100 mg tablet 100 mg PO DAILY #90 tabs 06/21/22 12/09/22 naproxen 500 mg tablet (Naprosyn) 500 mg PO BID #180 tabs 08/27/22 12/09/22 fluconazole 150 mg tablet 150 mg PO Q3D #2 tabs 09/02/22 09/21/22 cyclobenzaprine 10 mg tablet 10 mg PO BID PRN muscle spasm #30 09/21/22 12/09/22 tab-caps diazepam 2 mg tablet (Valium) 2 mg PO TID PRN muscle spasm #30 09/21/22 12/09/22 tabs nystatin 100,000 unit/gram topical 1 applic topical BID #60 grams 09/21/22 12/09/22 powder prochlorperazine maleate 10 mg 10 mg PO Q8H PRN #90 tabs 09/21/22 12/09/22 tablet sulfamethoxazole 800 1 tab PO as directed #30 tab-caps 09/21/22 09/21/22 mg-trimethoprim 160 mg tablet zolpidem 10 mg tablet 10 mg PO QHS PRN insomnia #30 tabs 11/08/22 12/09/22 Previous Rx's Medication Instructions Recorded estradiol 0.01% (0.1 mg/gram) 2 g vaginal DAILY #42.5 grams 03/18/20 vaginal cream (Estrace) ergocalciferol (vitamin D2) 1,250 50,000 unit PO QWEEK #13 caps 01/16/21 mcg (50,000 unit) capsule lorazepam 1 mg tablet (Ativan) 1 mg PO BID PRN anxiety #60 tabs 02/09/22 estradiol 10 mcg vaginal tablet 10 mcg vaginal twice weekly #24 03/30/22 (Vagifem) tab-caps hydrochlorothiazide 25 mg tablet 25 mg PO DAILY #90 tab-caps 04/20/22 omeprazole 20 mg capsule,delayed 20 mg PO DAILY GERD/Dysphagia #90 04/20/22 release caps rizatriptan 10 mg tablet (Maxalt) 10 mg PO Q2H PRN migraine headache 04/20/22 #7 tabs quetiapine 100 mg tablet 100 mg PO DAILY #90 tabs 06/21/22 naproxen 500 mg tablet (Naprosyn) 500 mg PO BID #180 tabs 08/27/22 fluconazole 150 mg tablet 150 mg PO Q3D #2 tabs 09/02/22 cyclobenzaprine 10 mg tablet 10 mg PO BID PRN muscle spasm #30 09/21/22 tab-caps diazepam 2 mg tablet (Valium) 2 mg PO TID PRN muscle spasm #30 09/21/22 tabs nystatin 100,000 unit/gram topical 1 applic topical BID #60 grams 09/21/22 powder prochlorperazine maleate 10 mg 10 mg PO Q8H PRN #90 tabs 09/21/22 tablet sulfamethoxazole 800 1 tab PO as directed #30 tab-caps 09/21/22 mg-trimethoprim 160 mg tablet zolpidem 10 mg tablet 10 mg PO QHS PRN insomnia #30 tabs 11/08/22 Allergies Allergy/AdvReac Type Severity Reaction Status Date / Time nut - unspecified Allergy Severe Tremors Verified 12/09/22 17:15 Penicillins Allergy Intermediate Skin Rash Verified 12/09/22 17:15 wheat Allergy Rash Verified 12/09/22 17:15 topiramate AdvReac Severe CONTRAINDIC Verified 12/09/22 17:15 ATED tramadol AdvReac Intermediate Headache Verified 12/09/22 17:15 codeine AdvReac Mild Headache Verified 12/09/22 17:15 meperidine HCl [From Demerol] AdvReac Mild Headache Verified 12/09/22 17:15 metoclopramide HCl AdvReac Mild Contraindic Verified 12/09/22 17:15 [From Reglan] ated dairy Allergy Intermediate skin Uncoded 12/09/22 17:15 breakdown General Stated Complaint: Orthopedic FARIBA: 3 Review of Systems All systems reviewed & are unremarkable except as noted in HPI and below PFSH All Active Problems (Updated 12/09/22 @ 19:41 by Scooby Haynes DO) Left buttock pain (Acute) Hip pain, left (Acute) Tick bite (Acute) Muscle spasm (Acute) Right hip pain (Acute) Heel pain, bilateral (Acute) Left knee pain (Acute) Pain of left heel (Acute) Colon abnormality (Acute ~03/06/21) erythema from 60-70cm bx pd 2020 Vitamin D deficiency (Chronic) Urethritis (Chronic 07/29/14) TMJ (temporomandibular joint disorder) (Chronic 07/29/16) Sacroiliac dysfunction (Chronic 12/04/15) Primary fibromyalgia syndrome (Chronic 04/04/12) Migraine without aura (Chronic 07/31/14) Lichen sclerosus et atrophicus (Chronic 04/05/11) Insomnia (Chronic 11/11/14) Hemorrhoids (Chronic) Int/Ext Essential hypertension (Chronic 12/26/12) Dysphagia (Chronic) S/P EGD; ? ULCER, NEG. BARIUM SWALLOW 2004 Degeneration of cervical intervertebral disc (Chronic 06/20/07) C-SPINE RADICULOPATHY 2006; MRI SHOWED C5-6, C6-7DDD Constant vertigo (Chronic 09/14/12) Bone spur (Chronic) RIGHT KNEE Asthma (Chronic) Anxiety (Chronic 02/04/14) Annual physical exam (Acute 03/31/15) Abnormal auditory perception (Chronic 12/05/14) right ear SCC (squamous cell carcinoma) (Acute) Herpes simplex antibody positive (Acute) Cervical pain (neck) (Acute) Arthralgia (Acute) Elevated LFTs (Acute) Primary osteoarthritis of left knee (Acute) Steroid injection: 03/10/2020 Tendonitis of wrist, right (Acute) Colon cancer screening (Acute) Medical History Acute gastritis (11/28/08) Acute meniscal tear, medial (09/01/12) 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 states arthroscopy not arthroplasty LEFT; WITH PARTIAL MEDIAL MENISCECTOMY Bladder Surgery (~05/2009) SLING CYSTECTOMY RIGHT HAND/CHEEK EGD - MAC Hemorrhoidectomy (~09/2010) History of bladder repair surgery History of colonoscopy with polypectomy (~03/06/21) History of esophagogastroduodenoscopy KNEE REPAIR right knee bone spur POLYPECTOMY Status post appendectomy Status post hemorrhoidectomy Status post knee surgery Status post vaginal hysterectomy UTERINE BX (09/01/07) Proliferative endometrium Vaginal hysterectomy (~05/2009) [facility] [place] Family History Mother , AGE 74 Diabetes Heart disease Hyperlipidemia Stroke Hypertension Depression Father , AGE 75 Heart disease Lung cancer Hypertension Sister Diabetes Essential hypertension Depression Heart disease Hyperlipidemia Myocardial infarction Sister Depression Sister Diabetes Essential hypertension Depression Heart disease Hyperlipidemia Alcohol abuse Substance abuse Brother Heart disease Hyperlipidemia Hypertension Diabetes Depression Brother , age 59 Substance abuse Non-Hodgkin's lymphoma Depression Heart disease Alcohol abuse Asthma Maternal Grandfather , AGE 59 Essential hypertension Heart disease Stroke Paternal Grandfather , AGE 76 Essential hypertension Heart disease Hyperlipidemia Stroke Maternal Grandmother , AGE 88 Heart disease Hyperlipidemia Stroke Hypertension Paternal Grandmother , AGE 63 No problems noted. Daughter Thyroid cancer Daughter Depression Brother No problems noted. Social History Smoking/Tobacco Use Status: Never Second Hand Exposure: Yes Smoking risk assessment performed?: Yes Alcohol Intake: never Drug use: Never Substance use type: does not use Caregiver/Support person: No Household members: spouse Housing: house Communication Needs: None Do you need help understanding health information?: Never Pets and animals: No Sexually active: Yes Do you think of yourself as: straight/heterosexual Current gender identity: female What is your relationship status?: How often do you talk on the phone with friends or family?: twice per week How often do you get together with friends or relatives?: decline to answer How often do you attend yazdanism or cheondoism services?: 4 or more times per year Do you belong to any clubs or organized social groups?: yes Panel score (0-1 are the most socially isolated patients): 3 What type of physical activity do you participate in: walking and bicycling Frequency: 1-2 times per week Patricia/Faith: None Special patricia needs: No Seatbelt use: always Helmet use: Yes Helmet use: always Drive intox 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 3.ENT: Atraumatic external nose and ears. Moist MM. Neck: Symmetric, trachea midline, No thyromegaly. 4.CVS: +S1/S2, No murmurs or gallops. Peripheral pulses 2+ and equal in all extremities. Brisk capillary refill in all extremities. 5.RESP: Unlabored respiratory effort. Clear to auscultation bilaterally. No wheezes rales or rhonchi 6.GI: Soft, Nontender/Nondistended, No hepatosplenomegaly. No guarding or rebound. 7.MSK: No evidence of trauma to the head, neck, thoracic or lumbar spine. No tenderness or signs of trauma in the upper extremities. Patient does have tenderness in the coccyx and the left hip. Minimal pain with internal and external rotation of the hip. Mild pain with flexion and extension. Notable pain on palpation of the coccyx and greater trochanter. 8.Skin: Warm, Dry. No rashes or lesions. 9.Neuro: community health program representative II-XII grossly intact. Sensation grossly intact, no focal neurologic deficits. 10.Psych: (AAO) x3. Appropriate mood and affect Course Vital Signs Vital signs: Vital Signs Temperature 36.6 C 12/09/22 17:06 Pulse 105 H 12/09/22 17:06 Respiratory Rate 20 12/09/22 17:06 Blood Pressure 189/118 H 12/09/22 17:06 Pulse Oximetry 97 12/09/22 17:06 Temperature 36.6 C 12/09/22 17:06 Temperature Source Tympanic 12/09/22 17:06 Pulse 105 H 12/09/22 17:06 Respiratory Rate 20 12/09/22 17:06 Respiratory Effort Normal, Non-Labored 12/09/22 17:13 Blood Pressure 189/118 H 12/09/22 17:06 Pulse Oximetry 97 12/09/22 17:06 Oxygen Delivery Method Room Air 12/09/22 17:06 Oxygen Flow Rate 0 12/09/22 17:06 PAWSS Have you Been Recently Intoxicated or Drunk Within the Last 30 days?: No Have you Ever Experienced Previous Episodes of Alcohol Withdrawal?: No Have you ever Experienced Withdrawal Seizures?: No Have you ever Experienced Delirium Tremens(DT)s?: No Have you ever undergone Alcohol Rehabilitation Treatment (i.e, inpt ot outpatient treatment programs)?: No Have you ever Experienced Blackouts?: No Have you ever Combined Alcohol with other Downers within the last 90 days?: No Have you ever Combined Alcohol with any other Substance of Abuse during the last 90 days?: No Result: 0
[2022-12-09] MEDS: Ondansetron O.D.T. 4 MG TABEF PO (17:30)
[2022-12-09] MEDS: HYDROcodone 5/Acetaminophen 325 TAB PO (17:30)
--- NOTE | 2022-12-09 18:15 | DI.RAD_ITS ---
Exam(s) XR SACRUM COCCYX XR PELVIS AP XR FEMUR LT EXAM: XR PELVIS AP CLINICAL HISTORY: fall, pain in left hip and coccyx. TECHNIQUE: 2D digital imaging was performed. COMPARISON: CR XR HIP RT COMPLETE AP PELVIS from 09/04/2021 CR,XR XR SACRUM COCCYX from 12/09/2022 CR,XR XR FEMUR LT from 12/09/2022 FINDINGS: BONES: No acute fracture is present. No bony destructive lesion is seen. JOINTS: No dislocation present. No joint space narrowing is present. Mild bilateral acetabular spurri ng. SI joints are unremarkable. Mild to moderate narrowing medial femoral tibial joint space of the knee. SOFT TISSUE: Normal. IMPRESSION: No acute abnormality. DATA REPOSITORY: RADIATION DOSE DELIVERED:
--- NOTE | 2022-12-09 19:19 | DI.VRAD_ITS ---
PROCEDURE INFORMATION: Exam: XR Pelvis Exam date and time: 12/09/2022 6:02 PM Age: 72 years old Clinical indication: Injury or trauma; Fall; Blunt trauma (contusions or hematomas); Left; Pelvic region TECHNIQUE: Imaging protocol: Radiologic exam of the pelvis. Views: 1 or 2 view. COMPARISON: CR XR HIP RT COMPLETE AP PELVIS 09/04/2021 10:49 AM FINDINGS: Bones/joints: Osseous alignment is normal. No acute fracture. No significant arthritic change. Soft tissues: Unremarkable. IMPRESSION: Negative pelvis Dictated and Authenticated by: Paulo Ennis MD. Ordering:SHYANNE Almodovar MD
--- NOTE | 2022-12-09 19:20 | DI.VRAD_ITS ---
PROCEDURE INFORMATION: Exam: XR Left Femur Exam date and time: 12/09/2022 6:05 PM Age: 72 years old Clinical indication: Injury or trauma; Fall; Blunt trauma; Thigh or upper leg; Left TECHNIQUE: Imaging protocol: Radiologic exam of the left femur. Views: 2 views. COMPARISON: CR XR PELVIS AP 12/09/2022 6:02 PM FINDINGS: Bones/joints: Osseous alignment is normal. No acute fracture. Mild degenerative changes noted in the left knee. Soft tissues: Unremarkable. IMPRESSION: No acute abnormality Dictated and Authenticated by: Paulo Ennis MD. Ordering:SHYANNE Almodovar MD
--- NOTE | 2022-12-09 19:20 | DI.VRAD_ITS ---
PROCEDURE INFORMATION: Exam: XR Sacrum and Coccyx, 2 or More Views Exam date and time: 12/09/2022 6:06 PM Age: 72 years old Clinical indication: Injury or trauma; Fall; Blunt trauma (contusions or hematomas) TECHNIQUE: Imaging protocol: XR of the sacrum and coccyx, 2 or more views. COMPARISON: CR XR PELVIS AP 12/09/2022 6:02 PM FINDINGS: Bones/joints: Normal. No acute fracture. Soft tissues: Normal. IMPRESSION: No acute findings. Dictated and Authenticated by: Paulo Ennis MD. Ordering:SHYANNE Almodovar MD
== END 2022-12-09 19:47 | disposition home or self-care (01) ==
PROVIDERS: Emergency Provider Student in an Organized Health Care Education/Training Program; PCP Family Medicine
DX: M25.552 Pain in left hip; S39.92XA Unspecified injury of lower back, initial encounter; W17.89XA Other fall from one level to another, initial encounter; Y93.H2 Activity, gardening and landscaping; R11.0 Nausea
CPT/HCPCS: 73552; 99284; 72170; 72220

== ENCOUNTER 2023-02-08 11:08 | Outpatient (CLI) | payer MEDICARE, SELFPAY ==
[2023-02-08 12:23] LABS: HCT 42.5 % (36.0-46.0); HGB 14.3 g/dL (11.2-15.7); MCH 30.8 pg (27.0-33.0); MCHC 33.6 % (32.0-36.0); MCV 91 fL (80-95); MPV 10.3 fL (8.0-11.0); Platelet Count 269 10^3/uL (130-400); RBC 4.65 10^6/uL (3.93-5.22); RDW 12.8 % (11.7-14.6); RDW-SD 43.1 fL; WBC 5.19 10^3/uL (4.4-10.8)
== END 2023-02-08 11:09 | disposition home or self-care (01) ==
LOC: LOS 11:08
PROVIDERS: PCP Family Medicine; Visit Provider Family Medicine
DX: R59.0 Localized enlarged lymph nodes (principal)
CPT/HCPCS: 36415; 85027

== ENCOUNTER 2023-04-19 14:56 | Outpatient (REF) | payer MEDICARE, SELFPAY | END 2023-04-19 14:57 | disposition home or self-care (01) | LOC: LBN 14:56 | PROVIDERS: PCP Family Medicine; Visit Provider Family Medicine | DX: N39.0 Urinary tract infection, site not specified (principal) | CPT/HCPCS: 87086 ==

== ENCOUNTER 2023-07-18 14:42 | Outpatient (REF) | payer MEDICARE, SELFPAY ==
[2023-07-18 15:15] LABS: Bilirubin Negative (Negative); Blood Large (Negative); Clarity Cloudy (Clear); Glucose Negative (Negative); Ketones Negative (Negative); Leukocyte Esterase Small (Negative); Nitrite Negative (Negative); Urobilinogen 0.2 mg/dL (Up to 0.2); pH 7.5 (5-8)
[2023-07-18 15:21] LABS: Bacteria Few HPF (Negative); C & S Indicated? Yes; Casts Negative LPF (Negative); Crystals Negative HPF (Negative); Epithelial Cells Few HPF (Negative); Mucus Negative (Negative); RBC >50 HPF (0-2)
== END 2023-07-18 14:43 | disposition home or self-care (01) ==
LOC: LBN 14:42
PROVIDERS: PCP Family Medicine; Visit Provider Family Medicine
DX: R31.9 Hematuria, unspecified (principal)
CPT/HCPCS: 87077; 81003; 81015; 87086; 87186

== ENCOUNTER → 2023-10-19 01:13 | Outpatient (CLI) | payer MEDICARE, SELFPAY ==
--- NOTE | 2023-10-19 07:04 | DI.MAMMO_ITS ---
Exam(s) MAMMO SCREENING EXAM: MAMMO SCREENING CLINICAL HISTORY: breast cancer screening TECHNIQUE: Bilateral full field digital CC and MLO mammographic images were obtained with 3D tomosyn thesis and utilizing computer aided detection (CAD). COMPARISON: Available for comparison. FINDINGS: Masses/Architectural Distortion: None seen. Microcalcifications: No suspicious pleomorphic-type are seen. Stable calcifications are seen in the b reast particularly in the upper outer quadrant of the right breast. Skin Thickening/Nipple Retraction: None. IMPRESSION: 1. No significant interval change with no specific features of malignancy noted. 2. Unless there is more urgent need, screening mammography is recommended, as per [place] guidelines. BI-RADS Category 2 - Benign Findings Breast Density - Category B - Scattered areas of fibroglandular density Breast density category C or D implies that the patient has dense breast tissue. Dense breast tissue is very common and is not abnormal but dense breast tissue can make it harder to find cancer on a ma mmogram. Also, dense breast tissue may increase their breast cancer risk. This information about the result of the mammogram report was provided to the patient to raise their awareness. Use this report when you speak with the patient about their risks for breast cancer, which includes their family hist ory. At that time, you may recommend for more screening tests (Ultrasound or MRI) as they might be us eful based on their risk. A negative radiographic report should not delay biopsy if a dominant or clinically suspicious mass is present. Up to ten percent of cancers are not identified on mammography. A negative report may reinforce clinical impression. Adenosis and dense breasts may obscure an underlying neoplasm. False positive reports average 6 to 10%. Patient will receive a letter notifying them of these results.
== END ==
PROVIDERS: PCP Family Medicine; Visit Provider Family Medicine
DX: Z85.3 Personal history of malignant neoplasm of breast (principal); Z12.31 Encounter for screening mammogram for malignant neoplasm of breast
CPT/HCPCS: 77063; 77067

== ENCOUNTER 2023-10-19 11:54 | Outpatient (CLI) | payer MEDICARE, SELFPAY ==
[2023-10-19 12:13] LABS: Anion Gap 7.8 mmol/L (3-11); BUN 12 mg/dL (7-18); CO2 30.2 mmol/L (21.0-32.0); CREATININE 0.9 mg/dL (0.55-1.02); Calcium 9.6 mg/dL (8.5-10.1); Chloride 106 mmol/L (98-107); Estimated GFR 68.77 (mL/min/1.73m2); Glucose 116 mg/dL (74-106); Potassium 3.7 mmol/L (3.5-5.1); Sodium 144 mmol/L (136-145)
[2023-10-20 21:14] LABS: Hepatitis C Ab w Rflx HCV PCR Negative (Negative)
[2023-10-20 21:15] LABS: HIV-1/2 Ag & Ab Screen Negative (Negative)
== END 2023-10-19 11:55 | disposition home or self-care (01) ==
LOC: LBO 11:56
PROVIDERS: PCP Family Medicine; Visit Provider Family Medicine
DX: Z11.59 Encounter for screening for other viral diseases (principal); E87.1 Hypo-osmolality and hyponatremia; Z00.00 Encounter for general adult medical examination without abnormal findings
CPT/HCPCS: 36415; 80048; 86803; 87389

== ENCOUNTER 2023-10-27 14:41 | Outpatient (CLI) | payer MEDICARE, SELFPAY ==
[2023-10-27 11:38] LABS: HCT 43.8 % (36.0-46.0); HGB 14.7 g/dL (11.2-15.7); MCH 31.6 pg (27.0-33.0); MCHC 33.6 % (32.0-36.0); MCV 94 fL (80-95); Platelet Count 287 10^3/uL (130-400); RBC 4.65 10^6/uL (3.93-5.22); RDW 12.8 % (11.7-14.6); RDW-SD 43.9 fL; WBC 5.89 10^3/uL (4.4-10.8)
[2023-10-27 12:07] LABS: Hemoglobin A1C 5.8 % (<5.7)
[2023-10-27 12:12] LABS: ALT 50 U/L (14-59); AST 28 U/L (15-37); Albumin 3.9 g/dL (3.4-5.0); Alkaline Phosphatase 96 U/L (46-116); Anion Gap 6.4 mmol/L (3-11); BUN 16 mg/dL (7-18); Bilirubin, Total 0.41 mg/dL (0.2-1.0); CO2 32.6 mmol/L (21.0-32.0); CREATININE 0.9 mg/dL (0.55-1.02); Calcium 9.7 mg/dL (8.5-10.1); Chloride 106 mmol/L (98-107); Estimated GFR 68.77 (mL/min/1.73m2); Glucose 124 mg/dL (74-106); Sodium 145 mmol/L (136-145); TSH (W/Ref FT4) 0.86 uIU/mL (0.36-3.74); Total Protein 7.5 g/dL (6.4-8.2)
[2023-10-27 12:49] LABS: Iron 143 ug/dL (50-170)
== END 2023-10-27 14:42 | disposition home or self-care (01) ==
LOC: LBO 14:43
PROVIDERS: PCP Family Medicine; Visit Provider Family Medicine
DX: I10 Essential (primary) hypertension (principal); R53.83 Other fatigue; E03.9 Hypothyroidism, unspecified; E11.9 Type 2 diabetes mellitus without complications
CPT/HCPCS: 36415; 80053; 85027; 83036; 83540; 84443

== ENCOUNTER 2023-11-30 00:53 | Outpatient (CLI) | payer MEDICARE, SELFPAY ==
--- NOTE | 2023-11-30 07:30 | DI.US_ITS ---
APPROVED REPORT EXAM: Comprehensive 2D, Doppler, and color-flow Echocardiogram Patient Location: Out-Patient Electrical Controls Engineer: Noemi Spence RDCS (AE) Indications: Chest pain, SOB Other Information Study Quality: Adequate Conclusion Normal left ventricular wall thickness and chamber size. Ejection fraction is 55 to 60%. Wall motio n is normal Normal right ventricular size and function Both atria are normal in size There are no structural valvular abnormalities Mild mitral regurgitation Ascending aorta measures 3.85 cm Estimated right ventricular systolic pressure is 25.3 mmHg Wall motion Left Ventricle The left ventricle is normal size. The left ventricular systolic function is normal. The left ventric ular ejection fraction is within the normal range. There is normal left ventricular wall thickness. T here is normal LV segmental wall motion. There is no ventricular septal defect visualized. LVEF is 55 -60%. Right Ventricle The right ventricle is normal size. The right ventricular systolic function is normal. Atria The left atrium size is normal. The right atrium size is normal. The interatrial septum is intact wit h no evidence for an atrial septal defect. Aortic Valve The aortic valve is normal in structure. Aortic valve is trileaflet. There is no aortic valvular lyndsey nosis. No aortic regurgitation is present. Mitral Valve The mitral valve is normal in structure. No evidence of mitral valve stenosis. Mild mitral regurgita tion. Tricuspid Valve The tricuspid valve is normal in structure. There is no tricuspid valve stenosis. Trace tricuspid reg urgitation. The RVSP is 25.3_ mmHg. Pulmonic Valve The pulmonary valve is normal in structure. There is no pulmonic valvular stenosis. Trace pulmonic re gurgitation. Great Vessels The aortic root is normal in size. The ascending aorta is mildly dilated. Aortic arch is normal in ca liber. IVC is normal in size and collapses >50% with inspiration. Pericardium There is no pericardial effusion. 2D Dimensions IVSD d PLAX 0.91 cm F: 0.6-1.0 Ao Root d 3.19 cm F: 2.7 - 3.3 LVPW d PLAX 0.90 cm F: 0.6 - 1.0 Ao Asc Diam d 3.85 cm F: 2.3 - 3.1 LVID d PLAX 4.41 cm F: 3.8 - 5.2 LVDs 3.21 cm F: 2.2 - 3.5 LV EF Teichholz 53.1 % FS 27.18 % LV EDV (Teich) 88.1 mL LV ESV (Teich) 41.3 mL M-Mode TAPSE 1.66 cm (M/F) >1.7 Auto EF LV EDV A4C 94.8 mL LV EDV A2C 105.3 mL LV EDV BP 99.5 mL LV ESV A4C 43.2 mL LV ESV A2C 47.3 mL LV ESV BP 45.1 mL LVEF(%) A4C 54.5 % LVEF(%) A2C 55.0 % LVEF(%) BP 54.7 % LV SV A4C 51.7 ml LV SV A2C 58.0 ml LV SV BP 54.4 ml LV CO A4C 3.2 L/min LV CO A2C 3.5 L/min LV CO BP 3.3 L/min HR A4C 61.86 BPM HR A2C 60.29 BPM LV EDV Index (BP) LA Volume LA Length A4C 4.2 cm LA Length A2C 4.2 cm LA Area A4C s 11.47 cm2 LA Area A2C s 14.36 cm2 LA Vol A4C A-L 26.38 mL LA Vol A2C A-L 41.92 mL LA Vol Biplane A-L 33.5 mL LA Vol/BSA A4C A-L LA Vol/BSA A2C A-L LA Vol/BSA BP A-L 16.0 mL/m2 LA Vol A4C MOD 24.3 mL LA Vol A2C MOD 39.3 mL LA Vol BP MOD 31.0 mL RA Volume RA Area A4C 11.4 cm2 RA ESV A4C (A-L) 23.9mL RA Vol/BSA A4C A-L RA Length A4C 4.7 cm RA ESV A4C (MOD) 23.5mL LV Diastology MV E' medial 0.072 (>0.07 m/s) MV E Vmax 0.83 (0.4-1.3 m/s) MV E/E' MED 11.51 (<14) MV A Vmax 1.00 (0.4-1.3 m/s) MV E' lateral 0.118 (>0.1 m/s) E/A Ratio 0.8 MV E/E' LAT 7.00 (<14) MV E' Average 0.095 m/s MV E/E'(average) 8.70 Aortic Valve AoV Vmax 1.15 m/s LVOT Vmax 1.04 m/s AoV Peak Grad 5.3 mmHg LVOT Peak Grad 4.3 mmHg AoV Area (Vmax) 2.86 cm2 LVOT VTI 0.269 m AoV VTI 0.305 m LVOT Mean Grad 2.3 mmHg AoV Mean Issa. 0.88 m/s LVOT SV 84.75 mL AoV Mean Grad 3.4 mmHg LVOT Diam s 2.00 cm AoV Area (VTI) 2.78 cm2 AV Regurg Peak Gr. 5.28 mmHg Velocity Ratio 0.90 Mitral Valve MV DT 240 (160-240 msec) MV Vmax TIPS 0.90 m/s MV Mean Grad 1.7 (<2mmHg) MV VTI 0.289 m Pulmonary Valve PV Vmax 0.93 (0.5-1.5 m/s) RVOT Vmax 0.63 m/s PV Peak Grad 3.5 mmHg RVOT Peak Gr. 1.6 mmHg PV Mean Issa 0.65 m/s RVOT VTI 0.153 m PV Mean Grad 1.9 mmHg RVOT Mean Gr. 0.9 mmHg Tricuspid Valve RA Pressure 3.00 mmHg TR Vmax 2.36 m/s TV S' 0.10 m/s TR Peak Grad 22.2 mmHg RVSP (TR) 25.3 mmHg
== END 2023-11-30 01:13 ==
PROVIDERS: PCP Family Medicine; Visit Provider Family Medicine
DX: R07.89 Other chest pain (principal); R06.02 Shortness of breath
CPT/HCPCS: 93306

== ENCOUNTER 2023-12-08 01:49 | Outpatient (CLI) | payer MEDICARE, SELFPAY ==
--- NOTE | 2023-12-08 09:30 | ETT_ITS ---
APPROVED REPORT Exam: Exercise Treadmill Patient Location: In-Patient Room/Bed: Stress Nurse: Cynthia Burden RN Ordering Provider:JESUS PRO, Contact Number: [phone] BMI: 33.67 Baseline Rhythm: Sinus Rhythm Comment: PVC's Indications: Other chest pain Medical History Medical History: Hx of COVID 19 infection, hip/heel/knee pain, Primary fibromyalgia, migraine, HTN, v ertigo, asthma, anxiety, SCC, arthralgia, OA,polymyalgia rheumatica Cardiac Medications: Magnesium Oxide, Albuterol sulfate PRN, Hydrochlorothiazide, Omeprazole Allergies: Nut, Penicillins, wheat, topiramate, tramadol, codeine, meperidine HCL, metoclopramide HCL , dairy Cardiac Risk Factors: +family history, +HTN, +Asthma Previous Cardiac Procedures: None Pretest Chest Pain Characteristics: None Exercise History: Physically active Physical Disabilities: Knees Lung Sounds: LCTA Heart Sounds: Regular, S1/S2 Stress Test Details Test: Exercise stress testing was performed using a Earnest protocol. Rest Stress HR Resting HR Supine: 77 bpm Max Heart Rate (APMHR): 149 bpm Resting HR Standin bpm Target HR (85% APMHR): 127 bpm Max HR Achieved: 136 bpm % of APMHR: 91 Recovery HR: 85 bpm HR response to stress: Normal HR response to stress BP Resting BP Supine: 128/82 mmHg Resting BP Standin/82 mmHg Max BP: 162/80 mmHg Recovery BP: 126/78 mmHg BP response to stress: Normal blood pressure response to stress. ECG Resting ECG: Sinus Rhythm Ectopy: PVC's Stress ECG: Sinus Tachycardia ST Change: No significant ST segment changes noted Arrhythmia: PVC's, couplets Recovery ECG: Sinus Rhythm Recovery ST Change: No significant ST segment changes noted Recovery Arrhythmia: PVC, PAC's Clinical Reason for Termination: Target HR Achieved, Knee limitations Stress Symptoms: None Exercise duration: 5 min12 sec Highest Stage Reached: Stage 2: 2.5 mph at 12% grade. Exercise capacity: 7.05 METs Angina Score: None [place] Treadmill Score: 4.7 Rate Pressure Product: [id number] Stress ECG Conclusion 1. Resting electrocardiogram showed low voltage 2. Patient exercised on the Earnest protocol and completed a workload of 7 METS 3. Normal heart rate and blood pressure response to exercise. Patient achieved 91% predicted heart r ate for age 4. There was no electrocardiographic evidence of myocardial ischemia 5. There are no significant dysrhythmias [place] Treadmill Score is 4.7 which is Moderate risk. Stress Test Summary STAGE Time (mins) Speed (mph) Grade (%) HR BP SpO2 SYMPTOMS METS Supine 77 128/82 97% Standing 85 112/82 1 3 1.7 10 119 152/86 96% 4.5 2 6 2.5 12 133 7 1 min recovery 115 162/80 3 min recovery 91 138/80 6 min recovery 85 126/78 97% Patient presented for exercise stress test today. Tolerated test well. No symptoms reported or observ ed during test. Left ambulatory in no apparent distress.
== END 2023-12-08 02:09 ==
LOC: DI 01:50
PROVIDERS: PCP Family Medicine; Visit Provider Family Medicine
DX: R07.89 Other chest pain (principal); I10 Essential (primary) hypertension
CPT/HCPCS: 93016; 93018; 93017

== ENCOUNTER 2024-01-11 02:23 | Outpatient (CLI) | payer MEDICARE, SELFPAY ==
--- NOTE | 2024-01-11 09:19 | DI.RAD_ITS ---
Exam(s) XR KNEE LT 3V AP,LAT,FLOYD EXAM: XR KNEE LT 3V AP,LAT,FLOYD CLINICAL HISTORY: l knee pain,m25.562. TECHNIQUE: 2D digital imaging was performed of the left knee. Three images were obtained. AP, late ral and PA tunnel views were obtained. COMPARISON: CR XR KNEE LT 3V AP,LAT,FLOYD from 09/04/2021 FINDINGS: BONES: No acute fracture is present. No bony destructive lesion is seen. JOINTS: There is moderate narrowing in the medial femoral tibial joint. Small osteophytes are seen a t the posterior patella and in the medial femoral tibial joint. No joint effusion is seen. SOFT TISSUE: Normal. IMPRESSION: Stable degenerative changes in the left knee. DATA REPOSITORY: RADIATION DOSE DELIVERED:
== END 2024-01-11 02:43 ==
LOC: DI 02:24
PROVIDERS: PCP Family Medicine; Visit Provider Family Medicine
DX: M25.562 Pain in left knee (principal)
CPT/HCPCS: 73562

== ENCOUNTER → 2024-01-30 08:04 | Outpatient (BNVA) | payer MEDICARE, SELFPAY | PROVIDERS: PCP Family Medicine; Referring Provider Family Medicine; Visit Provider Student in an Organized Health Care Education/Training Program | DX: M17.12 Unilateral primary osteoarthritis, left knee (principal) | CPT/HCPCS: 99213 ==

== ENCOUNTER 2024-06-08 16:40 | Outpatient (REF) | payer MEDICARE, SELFPAY ==
[2024-06-08 21:32] LABS: Bilirubin Negative (Negative); Blood Small (Negative); Clarity Clear (Clear); Glucose Negative (Negative); Ketones Negative (Negative); Leukocyte Esterase Trace (Negative); Nitrite Positive (Negative); Specific Gravity 1.025 (1.005-1.025); Urobilinogen 0.2 mg/dL (Up to 0.2)
[2024-06-08 21:47] LABS: Bacteria Few HPF (Negative); C & S Indicated? Yes; Casts Negative LPF (Negative); Crystals Negative HPF (Negative); Epithelial Cells Rare HPF (Negative); Mucus Negative (Negative)
== END 2024-06-08 16:41 | disposition home or self-care (01) ==
LOC: LBN 16:40
PROVIDERS: PCP Family Medicine; Visit Provider Physician Assistant
DX: R30.0 Dysuria (principal); N39.0 Urinary tract infection, site not specified
CPT/HCPCS: 81003; 81015; 87086

== ENCOUNTER 2024-09-27 11:55 | Outpatient (CLI) | payer MEDICARE, SELFPAY ==
[2024-09-27 13:48] LABS: Vitamin B12 1372 pg/mL (193-986)
== END 2024-09-27 11:56 | disposition home or self-care (01) ==
LOC: LBO 11:56
PROVIDERS: PCP Family Medicine; Visit Provider Family Medicine
DX: G62.9 Polyneuropathy, unspecified (principal)
CPT/HCPCS: 36415; 82607

== ENCOUNTER 2024-10-23 03:25 | Outpatient (CLI) | payer MEDICARE, SELFPAY ==
--- NOTE | 2024-10-23 09:00 | DI.MAMMO_ITS ---
Exam(s) MAMMO SCREENING EXAM: MAMMO SCREENING CLINICAL HISTORY: screening, Z12.39. TECHNIQUE: Bilateral full field digital CC and MLO mammographic images were obtained with 3D tomosynthesis and utilizing computer aided detection (CAD). COMPARISON: Prior mammograms dating back to 2016 were reviewed. FINDINGS: Multiple microcalcifications in the upper-outer quadrant of the right breast in area of dense tissue remain stable and benign appearance. There are no new malignant-appearing microcalcification groups in either breast. In the left breast there is an asymmetric density located 8 cm in from the nipple which appears waxing and waning from prior mammograms but was not evident in 2020. Spot compression view and ultrasound recommended. There is no significant architectural distortion nor skin thickening-retraction. IMPRESSION: 1. Stable benign-appearing right breast findings. 2. Asymmetric density in left breast as described above which requires further imaging. Recommend spot compression CC and MLO views and straight lateral view as well as complete left breast ultrasound. BI-RADS Category 0 - Incomplete: Need additional imaging evaluation Breast Density - Category C - The breast are heterogeneously dense, which may obscure small masses. Breast density Category C or D implies that the patient has dense breast tissue. Dense breast tissue can make it harder to find cancer on a mammogram. Dense breast tissue is also associated with an increased risk of breast cancer. This information about the result of the mammogram report was provided to the patient to raise their awareness. Use this report when you speak with the patient about their risks for breast cancer, which includes their family history. At that time, you may recommend additional screening tests (Ultrasound or MRI) as these tests may add significant information. A negative radiographic report should not delay biopsy if a dominant or clinically suspicious mass is present. Up to ten percent of cancers are not identified on mammography. A negative report may reinforce clinical impression. Adenosis and dense breasts may obscure an underlying neoplasm. False positive reports average 6 to 10%. Patient will receive a letter notifying them of these results.
== END 2024-10-23 03:45 ==
LOC: DI 03:25
PROVIDERS: PCP Family Medicine; Visit Provider Family Medicine
DX: Z12.31 Encounter for screening mammogram for malignant neoplasm of breast (principal); R92.333 Mammographic heterogeneous density, bilateral breasts
CPT/HCPCS: 77063; 77067

== ENCOUNTER 2024-10-30 02:33 | Outpatient (CLI) | payer MEDICARE, SELFPAY ==
--- NOTE | 2024-10-30 | DI.US_ITS ---
Exam(s) MG MAMMO SCREEN CALL BACK UNI US BREAST LT LIMITED EXAM: MG MAMMO SCREEN CALL BACK UNI and U/S breast LT limited CLINICAL HISTORY: ASYMMETRIC DENSITY LT BREAST 8CM FROM NIPPLE WAXING AND WANING R92.8. TECHNIQUE: Craniocaudal and mediolateral oblique Full Field Digital Mammography views of the left breast with Computer Aided Diagnosis followed by Tomosynthesis and limited left breast ultrasound. COMPARISON: Comparison is made with prior examinations. FINDINGS: Mammography/Tomosynthesis: Masses/Architectural Distortion: The area of concern is unchanged compared to the prior examination. This area has been seen on prior examinations and shows no significant change. There are no suspicious masses or areas of architectural distortion present. Microcalcifictions: No suspicious pleomorphic-type are seen. Skin Thickening/Nipple Retraction: None. Limited left breast US: Echotexture: Normal appearance of the glandular tissue. Shadowing: No suspicious foci. Cyst: None. Solid lesions: There is a 0.4 cm well-circumscribed hypoechoic nodule at the 7 o'clock position of the left breast 4 cm from the nipple. This is nonspecific. It is avascular. It is isoechoic to the surround breast tissue. This likely reflects a benign lesion. This may represent an intraparenchymal lymph node, island of breast tissue or small fibroadenoma. Ductal dilation: None. IMPRESSION: 1. No evidence of malignancy is noted. 2. A six-month follow-up left mammogram is requested for re-evaluation. 3. The findings were discussed with the patient on the date of the examination. BI-RADS Category 3 - 6 month - Probably Benign Finding: Recommend follow-up imaging in 6 months Breast Density - Category C - The breast are heterogeneously dense, which may obscure small masses. Breast density Category C or D implies that the patient has dense breast tissue. Dense breast tissue can make it harder to find cancer on a mammogram. Dense breast tissue is also associated with an increased risk of breast cancer. This information about the result of the mammogram report was provided to the patient to raise their awareness. Use this report when you speak with the patient about their risks for breast cancer, which includes their family history. At that time, you may recommend additional screening tests (Ultrasound or MRI) as these tests may add significant information. A negative radiographic report should not delay biopsy if a dominant or clinically suspicious mass is present. Up to ten percent of cancers are not identified on mammography. A negative report may reinforce clinical impression. Adenosis and dense breasts may obscure an underlying neoplasm. False positive reports average 6 to 10%. Patient will receive a letter notifying them of these results.
== END 2024-10-30 02:53 ==
LOC: DI 02:33
PROVIDERS: PCP Family Medicine; Visit Provider Family Medicine
DX: Z12.31 Encounter for screening mammogram for malignant neoplasm of breast (principal); N63.24 Unspecified lump in the left breast, lower inner quadrant
CPT/HCPCS: 76642; 77063; 77067

== ENCOUNTER 2024-10-30 10:38 | Outpatient (CLI) | payer MEDICARE, SELFPAY ==
[2024-10-30 11:49] LABS: ALT 60 U/L (14-59); AST 35 U/L (15-37); Albumin 4.0 g/dL (3.4-5.0); Alkaline Phosphatase 91 U/L (46-116); Anion Gap 5.7 mmol/L (3-11); BUN 15 mg/dL (7-18); Bilirubin, Total 0.3 mg/dL (0.2-1.0); CO2 32.3 mmol/L (21.0-32.0); Calcium 9.5 mg/dL (8.5-10.1); Calculated LDL 91 mg/dL (<100); Chloride 103 mmol/L (98-107); Cholesterol 173 mg/dL (<200); Estimated GFR 68.35 (mL/min/1.73m2); Glucose 102 mg/dL (74-106); HDL Cholesterol 54 mg/dL (>or=50); Potassium 3.8 mmol/L (3.5-5.1); Sodium 141 mmol/L (136-145); Total Protein 7.3 g/dL (6.4-8.2); Triglyceride 142 mg/dL (<150); Vitamin D 25 Total 54 ng/mL (30-100)
== END 2024-10-30 10:39 | disposition home or self-care (01) ==
LOC: LBO 10:39
PROVIDERS: PCP Family Medicine; Visit Provider Family Medicine
DX: E55.9 Vitamin D deficiency, unspecified (principal); I10 Essential (primary) hypertension
CPT/HCPCS: 36415; 80053; 80061; 82306

== ENCOUNTER 2025-01-02 14:24 | Outpatient (REF) | payer MEDICARE, SELFPAY ==
[2025-01-02 17:06] LABS: Glucose Negative (Negative)
== END 2025-01-02 14:25 | disposition home or self-care (01) ==
LOC: LBN 14:24
PROVIDERS: PCP Family Medicine; Visit Provider Nurse Practitioner Family
DX: N39.0 Urinary tract infection, site not specified (principal)
CPT/HCPCS: 81003

== ENCOUNTER → 2025-03-12 00:38 | Outpatient (CLI) | payer MEDICARE, SELFPAY ==
[2025-03-12] MEDS: Normal Saline - Diluent 50 ML VIAL IJ (09:46)
[2025-03-12] MEDS: Omnipaque 350 MG/ML 500 ML BTL-Imaging package IJ (09:46)
[2025-03-12] MEDS: Normal Saline Flush 10 ML SYR IVP (09:46)
--- NOTE | 2025-03-12 09:56 | DI.CT_ITS ---
Exam(s) CT ABDOMEN PELVIS WO/W EXAM: CT ABDOMEN PELVIS WO/W CLINICAL HISTORY: GROSS HEMATURIA, BLADDER PAIN TECHNIQUE: Imaging Protocol: Axial computed tomography images with coronal and sagittal reformatted images were created and reviewed. CONTRAST MATERIAL: Intravenous: Omnipaque 350 Contrast volume:75 mL Oral: No COMPARISON: CT PELVIC/LOWER ABD WITH CON(P) from 12/25/2009 FINDINGS: ABDOMEN: Lung Bases: There is a small hiatal hernia. Liver: There is diffuse decreased attenuation of the liver consistent with fatty infiltration. No measurable mass. Portal, Superior Mesenteric, and Splenic Veins: Unremarkable. Gallbladder and Biliary Tract: No radiodense calculus or dilation. Pancreas: Normal density, no abnormal calcifications or inflammatory process. Spleen: Normal. Adrenals: No masses seen. Kidneys: Normal size, contour and axis. 1-2 mm nonobstructing stones in the superior pole of the left kidney. There is a simple cyst in the right kidney. No follow-up is recommended. Abdominal Aorta: Abdominal portion non-dilated. Mild atherosclerotic calcification. Bowel: No obstruction or bowel wall thickening. There is no evidence of appendicitis. Peritoneal Cavity: No ascites, collection or mesenteric inflammatory response. No free air. Lymph Nodes: Within normal limits. Bones: Within normal limits for the patient's age. Soft Tissues: Unremarkable. PELVIS: Bladder: Symmetric distention, no gross wall thickening. Reproductive Organs: Status post hysterectomy. Lymph Nodes: Within normal limits. Bones: Within normal limits for the patient's age. IMPRESSION: 1. Left nephrolithiasis without evidence of obstructive uropathy. 2. No evidence of a bladder mass is seen. 3. Hepatic steatosis. RADIATION DOSE DELIVERED: 2,331.07mGy.cm Total DLP 2,331.07mGy.cm Total DLP DATA REPOSITORY: All CT scans at this facility are submitted to the National Radiology Data Registry (NRDR) Dose Index Registry (DIR) with the [employer] (A[employer]). RADIATION OPTIMIZATION: All CT scans at this facility use at least one of these dose optimization techniques: automated exposure control; mA and/or kV adjustment per patient size (includes targeted exams where dose is matched to clinical indication); or iterative reconstruction.
== END ==
LOC: DI 00:38
PROVIDERS: PCP Family Medicine; Visit Provider Urology
DX: Z01.812 Encounter for preprocedural laboratory examination (principal); R31.0 Gross hematuria; Z09 Encounter for follow-up examination after completed treatment for conditions other than malignant neoplasm; Z12.31 Encounter for screening mammogram for malignant neoplasm of breast
CPT/HCPCS: 74178; 82565

== ENCOUNTER → 2025-03-13 00:18 | Outpatient (CLI) | payer MEDICARE, SELFPAY ==
--- NOTE | 2025-03-13 07:30 | DI.MAMMO_ITS ---
Exam(s) MAMMO DIAGNOSTIC UNI EXAM: MAMMO DIAGNOSTIC UNI CLINICAL HISTORY: 3-6 mo f/u,ABNL MAMMO, R92.8,Z09 TECHNIQUE: Left cc and MLO mammogram images were performed according to the usual protocol including computer analysis with CAD system, tomosynthesis and C- view imaging. COMPARISON: 30 October 2024 and exams back to 2015. FINDINGS: The left breast is composed of scattered fibroglandular densities, Breast Density category B. No suspicious masses or suspicious microcalcifications are seen. There is stable area asymmetric tissue in the lower inner quadrant of the left breast. This appears unchanged from multiple exams. No skin thickening or abnormal axillary lymph nodes are seen. IMPRESSION: BI-RADS Category 1, Negative mammogram Yearly screening mammography is recommended. Breast Density - Category C - The breast are heterogeneously dense, which may obscure small masses. Breast density Category C or D implies that the patient has dense breast tissue. Dense breast tissue can make it harder to find cancer on a mammogram. Dense breast tissue is also associated with an increased risk of breast cancer. This information about the result of the mammogram report was provided to the patient to raise their awareness. Use this report when you speak with the patient about their risks for breast cancer, which includes their family history. At that time, you may recommend additional screening tests (Ultrasound or MRI) as these tests may add significant information. A negative radiographic report should not delay biopsy if a dominant or clinically suspicious mass is present. Up to ten percent of cancers are not identified on mammography. A negative report may reinforce clinical impression. Adenosis and dense breasts may obscure an underlying neoplasm. False positive reports average 6 to 10%. Patient will receive a letter notifying them of these results.
== END ==
LOC: DI 00:18
PROVIDERS: PCP Family Medicine; Visit Provider Family Medicine
DX: Z09 Encounter for follow-up examination after completed treatment for conditions other than malignant neoplasm (principal); R92.8 Other abnormal and inconclusive findings on diagnostic imaging of breast; Z12.31 Encounter for screening mammogram for malignant neoplasm of breast
CPT/HCPCS: 77061; 77065; G0279